=== PATIENT | female | born 2000 | race Caucasian/White ===

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

== ENCOUNTER 2020-09-08 15:24 | Emergency (ER) | payer MEDICAID, SELFPAY ==
[2020-09-08 15:29] VITALS: BP 118/84; PULSE 85; RESP 14; TEMP 36.8; O2SAT 99; BMI 35.5
--- NOTE | 2020-09-08 15:34 | ED_ITS ---
HPI - Neck Pain/Injury General: Chief Complaint: Neck Pain/Injury Stated Complaint: UNABLE TO MOVE NECK VERY WELL W/OUT PAIN Time Seen by Provider: 09/08/20 15:30 History of Present Illness: HPI Narrative: Patient is a 19-year-old female comes to the ED with neck pain. Pain occurred yesterday. 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 She states that yesterday she was lifting something and felt the pain in her neck. She says then throughout the day of the neck pain got worse and she started developing some stiffness in the neck. She is taken [id number] ibuprofen to help with pain. She says sometimes the neck pain causes some headaches as well. Denies any fever, chills, nausea/vomiting. She rates her neck pain an 8 out of 10. Patient denies any chance of being . Associated symptoms: Denies headache(s) or nausea Review of Systems Const: Denies: fever(s), chills or fatigue Eyes: Denies: change in vision or eye discomfort ENMT: Denies: throat pain, odynophagia, nasal discharge or nasal congestion Card: Denies: chest pain, palpitations, edema, swelling of feet/ankles, dyspnea on exertion or orthopnea Resp: Denies: dyspnea, productive cough or non-productive cough GI: Denies: abdominal pain, nausea, vomiting, diarrhea, constipation or hematochezia : Denies: flank pain, dysuria or hematuria Musc: Reports: neck pain; Denies: back pain or extremity swelling Skin/Breast: Denies: rash or new lesions Neuro: Denies: headache(s), numbness in extremities or weakness in extremities PFS ED PFSH: Social History Smoking and tobacco status: current every day smoker Physical Exam Const: COMMON NORMALS: no acute distress, patient oriented x3, healthy appearing and alert GENERAL APPEARANCE: cooperative and comfortable HENMT: COMMON NORMALS: normocephalic HEAD & SCALP: normocephalic MOUTH: Normal oral and palatal mucosa present THROAT: posterior oropharynx normal and uvula midline Eye: COMMON NORMALS: Equal, round and reactive pupils present PUPIL: Yes Equal, round and reactive pupils present Neck/C-Spine: COMMON NORMALS: supple and no meningeal signs GENERAL: Yes normal visual inspection CERVICAL SPINE: Yes pain with cervical ROM with anterior flexion, No Cervical spine tenderness, Yes Paracervical muscle tenderness bilateral and Yes Trapezius muscle tenderness bilateral Resp: COMMON NORMALS: normal respiratory effort, No retractions, No use of accessory muscles and clear to auscultation bilaterally AUSCULTATION: clear to auscultation bilaterally Cardio: COMMON NORMALS: regular rate, regular rhythm, S1 normal heart sound present, S2 normal heart sound present, No gallops present (Cardio), No clicks present (Cardio), No murmurs present (Cardio) and Peripheral pulses 2+ throughout RATE: regular rate RHYTHM: regular rhythm HEART SOUNDS: S1 normal heart sound present and S2 normal heart sound present PERIPHERAL PULSES: Peripheral pulses 2+ throughout GI: COMMON NORMALS: Normal to inspection, nondistended, normoactive bowel sounds present, Soft to palpation, non-tender and no masses PALPATION: Yes Soft to palpation : COMMON NORMALS: Yes no CVA tenderness BLADDER/KIDNEY EXAM: Yes no CVA tenderness Back/Pelvis: COMMON NORMALS: no CVA tenderness Extremity: COMMON NORMALS: normal to inspection Neuro: COMMON NORMALS: patient oriented x3 and moves all extremities SENSORIUM/ORIENTATION: Yes alert MENINGEAL SIGNS: Yes no meningeal signs, No nuccal rigidity and No Brudzinski's sign present Skin: GENERAL SKIN EXAM: dry skin Course Vital Signs: Vital signs: Vital Signs Temperature 98.3 F 09/08/20 15:29 Pulse Rate 85 09/08/20 15:29 Respiratory Rate 14 09/08/20 15:29 Blood Pressure 118/84 09/08/20 15:29 Pulse Oximetry 99 09/08/20 15:29 MDM - Neck Pain/Injury MDM Narrative: Medical decision making narrative: Patient is a 19-year-old female comes to the ED with neck pain. Patient works as a [employer] SUPER[employer] and says neck pain started yesterday after she lifted something. Denies any fever, chills, nausea/vomiting. Patient has some bilateral paracervical muscle tenderness and bilateral trapezius muscle tenderness. No meningeal signs and negative Brudzinski sign. Patient was given a dose of Toradol and Norflex while here in the ED. She was discharged and instructed to follow-up with PCP in 7 to 10 days for reevaluation. She is sent home with a prescription for Robaxin and ibuprofen 800. Return to ED precautions given. Patient understood agree with plan. Discharge Plan Discharge Patient Disposition: Home Clinical Impression: Strain of neck muscle Qualifiers: Encounter type: initial encounter Qualified Code(s): S16.1XXA - Strain of muscle, fascia and tendon at neck level, initial encounter Condition: Stable Prescriptions: No Action No Known Home Medications RF: 0 Discharge Orders: Discharge ED (Routine); Ordered 09/08/20 Ordered By: Dimitris Bermudez Referrals: Brent Norman MD [Primary Care Provider] - Discharge Diet: Regular Discharge Activity: Increase activity as tolerated Patient Instructions: Cervical Strain Activity Restrictions/Additional Instructions: Follow-up with medical provider as directed in 7 to 10 days for reevaluation. Stretch neck daily and massage neck muscles daily as well up with symptoms. Apply cold pack or heat on sore neck to help with symptoms as well. take medications as prescribed. Robaxin is a muscle relaxer and can cause some drowsiness so take at night before bed. Return to the ER or your medical provider if condition worsens. Please read and understand discharge instructions. If any questions, please ask. Coding Level of Care Code ED Superintendent Transportation for Rolly Fwd Exam Comprehensive
[2020-09-08] MEDS: ketorolac 60 mg/2 mL INJ IM (15:49)
[2020-09-08] MEDS: orphenadrine 30 mg/mL Inj 2 mL 60 MG IM (15:49)
[2020-09-08 16:01] VITALS: RESP 18
== END 2020-09-08 16:01 | disposition home or self-care (01) ==
PROVIDERS: Emergency Provider Physician Assistant; PCP Family Medicine
DX: S16.1XXA Strain of muscle, fascia and tendon at neck level, initial encounter (principal); F17.210 Nicotine dependence, cigarettes, uncomplicated; X50.0XXA Overexertion from strenuous movement or load, initial encounter
CPT/HCPCS: 12345; 96372; 99281; 99283; J1885; J2360

== ENCOUNTER 2021-03-10 05:11 | Emergency (ER) | payer MEDICAID, SELFPAY ==
[2021-03-10 05:17] VITALS: BP 137/86; PULSE 80; RESP 18; TEMP 37.1; O2SAT 98; BMI 38.5
--- NOTE | 2021-03-10 05:30 | ED_ITS ---
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 She states that she took a hot bath and made the pain worse. States it is worse with movement improved with rest. She rates pain a 3 out of 10 currently. Denies any dysuria denies any vomiting or diarrhea. Denies any abdominal pain. Associated symptoms: Deny abdominal pain, chills, dysuria, fever(s), nausea or vomiting Review of Systems Const: Denies: fever(s), chills, body aches or change in appetite Eyes: Denies: blurry vision or eye discomfort ENMT: Denies: throat pain or dental pain Card: Denies: chest pain Resp: Denies: dyspnea GI: Denies: abdominal pain, nausea, vomiting or diarrhea : Denies: dysuria Musc: Reports: back pain Skin/Breast: Denies: rash Neuro: Denies: headache(s) Psych: Denies: depression Gigi/Lymph: Denies: easy bruising All/Imm: Denies: urticaria PFSH ED PFSH: Social History Smoking and tobacco status: current every day smoker Physical Exam Const: COMMON NORMALS: no acute distress, patient oriented x3 and healthy appearing HENMT: COMMON NORMALS: normocephalic and atraumatic HEAD & SCALP: normocephalic and atraumatic Eye: COMMON NORMALS: Equal, round and reactive pupils present and EOMs intact bilaterally PUPIL: Yes Equal, round and reactive pupils present Neck/C-Spine: COMMON NORMALS: full ROM and supple Chest: COMMONS NORMALS: normal inspection of the chest and normal palpation of entire chest wall Resp: COMMON NORMALS: normal respiratory effort, No retractions, No use of accessory muscles and clear to auscultation bilaterally AUSCULTATION: clear to auscultation bilaterally Cardio: COMMON NORMALS: regular rate, regular rhythm and No murmurs present (Cardio) RATE: regular rate RHYTHM: regular rhythm GI: COMMON NORMALS: Normal to inspection, nondistended, normoactive bowel sounds present, Soft to palpation, non-tender and no masses PALPATION: Yes Soft to palpation Back/Pelvis: OTHER: Point tender over right lower lobe lumbar region along with some mid back tenderness no spinal tenderness Extremity: COMMON NORMALS: normal to inspection and full ROM Neuro: COMMON NORMALS: patient oriented x3, moves all extremities and no focal motor deficits Psych: COMMON NORMALS: mental status grossly normal, Normal thought process present and cooperative THOUGHT PROCESS: Normal thought process present Skin: COMMON NORMALS: no rashes or lesions noted and no wounds GENERAL SKIN EXAM: no rashes or lesions noted Course Vital Signs: Vital signs: Vital Signs Temperature 98.8 F 03/10/21 05:17 Pulse Rate 80 03/10/21 05:17 Respiratory Rate 18 03/10/21 05:17 Blood Pressure 137/86 03/10/21 05:17 Pulse Oximetry 98 03/10/21 05:17 MDM - Back Pain/Injury MDM Narrative: Medical decision making narrative: Patient presents here with a low back strain likely from lifting. She is well-appearing here is tender on exam consistent with a lumbar strain. Patient has no midline tenderness with no signs of epidural abscess. He is stable for discharge and is to follow-up with PCP. She is to ice the area and no heavy lifting. Discharge Plan Discharge Patient Disposition: Home Clinical Impression: Strain of lumbar region Qualifiers: Encounter type: initial encounter Qualified Code(s): S39.012A - Strain of muscle, fascia and tendon of lower back, initial encounter Condition: Stable Prescriptions: New methocarbamol 750 mg tablet 750 mg PO Q6H PRN (Reason: spasms) Qty: 20 RF: 0 Naprosyn 500 mg tablet 500 mg PO BID PRN (Reason: pain) Qty: 20 RF: 0 No Action amoxicillin-pot clavulanate 875-125 mg tablet 1 tab PO BID 10 Days Qty: 20 RF: 0 prednisone 20 mg tablet 20 mg PO DAILY 5 Days Qty: 5 RF: 0 Discharge Orders: Discharge ED (Routine); Ordered 03/10/21 Ordered By: Bigg Manzo Referrals: Prasanna Justin MD [Primary Care Provider] - 1-3 days Discharge Diet: Advance as tolerated Discharge Activity: Resume usual activity Patient Instructions: Low Back Strain (ED), Opioid Safety Stand Alone Forms: Work/School Release Coding Level of Care Code ED Journeyman Mechanic for Chg Fwd Exam Comprehensive
[2021-03-10] MEDS: ketorolac 60 mg/2 mL INJ IM (05:43)
[2021-03-10] MEDS: ondansetron 4 MG Tablet PO (05:51)
[2021-03-10 05:54] VITALS: BP 153/94; PULSE 73; RESP 18; O2SAT 99
== END 2021-03-10 05:56 | disposition home or self-care (01) ==
PROVIDERS: Emergency Provider Emergency Medicine; PCP Family Medicine
DX: S39.012A Strain of muscle, fascia and tendon of lower back, initial encounter (principal); F17.210 Nicotine dependence, cigarettes, uncomplicated; X50.9XXA Other and unspecified overexertion or strenuous movements or postures, initial encounter; Y93.F2 Activity, caregiving, lifting; Y99.0 Civilian activity done for income or pay
CPT/HCPCS: 96372; 99283; J1885; Q0162

== ENCOUNTER 2023-01-30 00:55 | Emergency (ER) | payer BC, MEDICAID, SELFPAY ==
[2023-01-30 01:01] VITALS: BP 151/77; PULSE 87; RESP 18; TEMP 37.3; O2SAT 99; BMI 43.2
--- NOTE | 2023-01-30 01:14 | ED_ITS ---
HPI - URI/Sore Throat General: Chief Complaint: Upper Respiratory Infection Stated Complaint: thoat pain Time Seen by Provider: 01/30/23 01:00 History of Present Illness: Patient is a 22-year-old female comes to the ED with sore throat and UTI symptoms. Patient says her sore throat has been going on now for little over a month and a half. She was diagnosed with strep throat a month and a half ago and was put on a prescription for amoxicillin. Patient says she finished her course of amoxicillin and did not get much improvement with her sore throat and she has just been dealing with it. Over the past couple days the sore throat pain is gotten worse and its on the right side of her throat and radiates into her right ear. She endorses some right ear pain as well. Denies any fevers, chills, nasal drainage or congestion, cough, abdominal pain, nausea/vomiting or bowel symptoms. Patient does endorse having some burning with urination and some white vaginal discharge. Her urinary symptoms started approximately 2 days ago. Associated symptoms: Reports ear or mastoid pain (Right ear pain); Deny abdominal pain, chills, chest pain, diarrhea, fever(s), headache(s), nasal congestion, nausea or vomiting Review of Systems Const: Denies: fever(s), chills or fatigue Eyes: Denies: change in vision or eye discomfort ENMT: Reports: throat pain and ear or mastoid pain (Right ear pain); Denies: odynophagia, nasal discharge or nasal congestion Card: Denies: chest pain, palpitations, edema, swelling of feet/ankles, dyspnea on exertion or orthopnea Resp: Denies: dyspnea, productive cough or non-productive cough GI: Denies: abdominal pain, nausea, vomiting, diarrhea, constipation or hematochezia : Reports: dysuria and vaginal discharge (White discharge); Denies: flank pain or hematuria Musc: Denies: neck pain, back pain or extremity swelling Skin/Breast: Denies: rash or new lesions Neuro: Denies: headache(s), numbness in extremities or weakness in extremities [facility] ED PFSH: Medical History (Updated 01/30/23 @ 01:44 by ELOY Gonzalez) No pertinent family history Surgical History (Updated 01/30/23 @ 01:19 by ELOY Gonzalez) No pertinent past surgical history Social History Smoking and tobacco status: current every day smoker Physical Exam Const: COMMON NORMALS: no acute distress, patient oriented x3, healthy appearing and alert HENMT: COMMON NORMALS: normocephalic, EAC's normal and TM's normal bilaterally HEAD & SCALP: normocephalic EXTERNAL AUDITORY CANAL: EAC's normal TYMPANIC MEMBRANE: TM's normal bilaterally MOUTH: Normal oral and palatal mucosa present THROAT: uvula midline, abnormal tonsil bilateral hypertrophy 2+ and posterior oropharynx abnormal erythema Neck/C-Spine: COMMON NORMALS: supple GENERAL: Yes normal visual inspection Resp: COMMON NORMALS: normal respiratory effort, No retractions, No use of accessory muscles and clear to auscultation bilaterally AUSCULTATION: clear to auscultation bilaterally Cardio: COMMON NORMALS: regular rate, regular rhythm, S1 normal heart sound present, S2 normal heart sound present, No gallops present (Cardio), No clicks present (Cardio), No murmurs present (Cardio) and Peripheral pulses 2+ throughout RATE: regular rate RHYTHM: regular rhythm HEART SOUNDS: S1 normal heart sound present and S2 normal heart sound present PERIPHERAL PULSES: Peripheral pulses 2+ throughout GI: COMMON NORMALS: Normal to inspection, nondistended, normoactive bowel sounds present, Soft to palpation, non-tender and no masses PALPATION: Yes Soft to palpation : COMMON NORMALS: Yes no CVA tenderness BLADDER/KIDNEY EXAM: Yes no CVA tenderness Back/Pelvis: COMMON NORMALS: no CVA tenderness Extremity: COMMON NORMALS: normal to inspection Neuro: COMMON NORMALS: patient oriented x3 SENSORIUM/ORIENTATION: Yes alert GAIT: Yes Normal gait present Skin: GENERAL SKIN EXAM: dry skin Course Vital Signs: Vital signs: Vital Signs Temperature 99.1 F 01/30/23 01:01 Pulse Rate 87 01/30/23 01:01 Respiratory Rate 18 01/30/23 01:01 Blood Pressure 151/77 01/30/23 01:01 Pulse Oximetry 99 01/30/23 01:01 [facility] - URI/Sore Throat Medical Decision Making Patient is a 22-year-old female comes to the ED with sore throat and UTI symptoms. Patient says her sore throat has been going on now for little over a month and a half. She was diagnosed with strep throat a month and a half ago and was put on a prescription for amoxicillin. Patient says she finished her course of amoxicillin and did not get much improvement with her sore throat and she has just been dealing with it. Over the past couple days the sore throat pain is gotten worse and its on the right side of her throat and radiates into her right ear. She endorses some right ear pain as well. Denies any fevers, chills, nasal drainage or congestion, cough, abdominal pain, nausea/vomiting or bowel symptoms. Patient does endorse having some burning with urination and some white vaginal discharge. Her urinary symptoms started approximately 2 days ago. Vitals are stable. Patient appears nontoxic in no acute distress or pain. TMs are normal bilaterally. She has tonsil hypertrophy that is 2+ bilaterally and posterior oropharynx erythema. Rest of exam is benign. hCG urine was negative, UA showed no signs of a UTI. Strep was negative. Patient was given a dose of Rocephin here in the ED and diagnosed with pharyngitis and vaginal yeast infection. She was sent home with a prescription for an antibiotic and antifungal. Told to follow-up with her PCP in the next week for reevaluation. Return to ED precautions given. Patient understood and agreed with plan. Lab Data I reviewed the patient's lab results. Laboratory Results HCG, Qual Negative (Negative) 01/30/23 01:20 Urine Color Colorless (Yellow) 01/30/23 01:20 Urine Appearance Clear (CLEAR) 01/30/23 01:20 Urine pH 6 (5-7) 01/30/23 01:20 Ur Specific [place] 1.015 (1.005-1.030) 01/30/23 01:20 Urine Protein Neg (Negative) 01/30/23 01:20 Urine Glucose (UA) Norm (Normal) 01/30/23 01:20 Urine Ketones Negative (Negative) 01/30/23 01:20 Urine Blood Neg (Negative) 01/30/23 01:20 Urine Nitrate Negative (Negative) 01/30/23 01:20 Urine Bilirubin Neg (Negative) 01/30/23 01:20 Urine Urobilinogen Neg mg/dL (Negative) 01/30/23 01:20 Ur Leukocyte Esterase Negative (Negative) 01/30/23 01:20 Group A Strep Rapid Negative (Negative) 01/30/23 01:22 Discharge Plan Discharge Patient Disposition: Home Clinical Impression: Pharyngitis, Vaginal yeast infection Condition: Stable Prescriptions: New fluconazole 150 mg tablet 150 mg PO Q3D Qty: 2 0RF Rx Instructions: may repeat second dose 72 hrs after first dose if symptoms persist clindamycin HCl 300 mg capsule 300 mg PO Q8H 10 Days Qty: 30 0RF No Action fluconazole [Diflucan] 150 mg tablet 150 mg PO Q3D Qty: 2 1RF Naprosyn 500 mg tablet 500 mg PO BID PRN (Reason: pain) Qty: 20 0RF Discharge Orders: Discharge ED (Routine); Ordered 01/30/23 Ordered By: Dimitris Bermudez Referrals: Prasanna Justin MD [Primary Care Provider] - Discharge Diet: Regular Discharge Activity: Increase activity as tolerated Patient Instructions: Pharyngitis (ED), Yeast Infection Activity Restrictions/Additional Instructions: Follow-up with medical provider as directed in the next 7 to 10 days for reevaluation. Take medications as prescribed. Return to the ER or your medical provider if condition worsens. Please read and understand discharge instructions. Thank you for choosing [facility] for your healthcare needs today. Please realize this is an emergency room and that we are providing you with a medical screening exam and this may not be complete and all inclusive of all the testing and or work up that you may need to determine your ailment or severity of your illness. It is very important that you follow up as instructed or that you return to the Emergency Department should you have concerns or if your condition changes or worsens in any way. Coding Level of Care Code ED [place] Operator for Rolly Calixto
[2023-01-30] MEDS: cefTRIAXone 1,000 MG in water for injection-sterile 2.1 ML 2.1 MG IM (01:26)
[2023-01-30 01:27] LABS: HCG Qualitative Urine. Negative (Negative)
[2023-01-30 01:33] LABS: Rapid Strep A Test Negative (Negative)
[2023-01-30 01:35] LABS: Add Urine Microscopic? NO; Charge for UA Resulting for Rev
[2023-01-30 01:36] LABS: Bilirubin Urine Neg (Negative); Blood Urine Neg (Negative); Glucose Urine UA Norm (Normal); Ketones Urine Negative (Negative); Leukocyte Esterase Urine Negative (Negative); Nitrate Urine Negative (Negative); Protein Urine Neg (Negative); Specific Gravity, Urine 1.015 (1.005-1.030); Urine Appearance Clear (CLEAR); Urine Color Colorless (Yellow); Urobilinogen Urine Neg (Negative); pH Urine 6 (5-7)
[2023-01-30 01:53] VITALS: BP 156/96; PULSE 84; RESP 16; O2SAT 96
[2023-01-30 01:54] VITALS: BP 156/96; PULSE 84; RESP 16; TEMP 37.3; O2SAT 96
== END 2023-01-30 01:55 | disposition home or self-care (01) ==
PROVIDERS: Emergency Provider Physician Assistant; PCP Family Medicine
DX: J02.9 Acute pharyngitis, unspecified (principal); B37.9 Candidiasis, unspecified; F17.210 Nicotine dependence, cigarettes, uncomplicated
CPT/HCPCS: 81003; 81025; 87081; 87880; 96372; 99284; J0696

== ENCOUNTER 2023-02-06 22:11 | Emergency (ER) | payer BC, MEDICAID, SELFPAY ==
[2023-02-06 22:17] VITALS: BP 120/80; PULSE 91; RESP 16; TEMP 37; O2SAT 98; BMI 41.2
--- NOTE | 2023-02-06 23:27 | ED_ITS ---
HPI - Skin/Abscess/Foreign Bdy General: Chief complaint: Skin/Abscess/Foreign Body Stated complaint: Rash Time Seen by Provider: 02/06/23 23:10 History of Present Illness: 22-year-old female has just completed antibiotics and has been outside significantly and recently developed a rash to the face. Patient has a confluent maculopapular rash to the face with white pustules. Patient appears nontoxic. Patient appears in no acute distress. Review of Systems General: Reports: 10 or more systems reviewed and unremarkable except in HPI and below Skin/Breast: Reports: rash PFSH ED PFSH: Medical History (Updated 02/07/23 @ 00:04 by NICHO Teran) No pertinent family history Surgical History (Updated 01/30/23 @ 01:19 by ELOY Gonzalez) No pertinent past surgical history Social History Smoking and tobacco status: current every day smoker Physical Exam Const: COMMON NORMALS: alert HENMT: COMMON NORMALS: normocephalic HEAD & SCALP: normocephalic Neck/C-Spine: COMMON NORMALS: full ROM Resp: COMMON NORMALS: normal respiratory effort and clear to auscultation bilaterally AUSCULTATION: clear to auscultation bilaterally Cardio: COMMON NORMALS: regular rate RATE: regular rate Back/Pelvis: COMMON NORMALS: thoracic and lumbar spine normal to inspection Extremity: COMMON NORMALS: normal to inspection Neuro: SENSORIUM/ORIENTATION: Yes alert Skin: RASHES: other (Acneform eruption to face) Course Vital Signs: Vital signs: Vital Signs Temperature 98.6 F 02/06/23 22:17 Pulse Rate 91 02/06/23 22:17 Respiratory Rate 16 02/06/23 22:17 Blood Pressure 120/80 02/06/23 22:17 Pulse Oximetry 98 02/06/23 22:17 Oxygen Delivery Me thod Room Air 02/06/23 22:17 MDM - Skin/Abscess/Foreign Bdy Medicial Decision Making Patient comes in for rash to the face. On exam patient has a maculopapular rash with pustules to the face. Patient recently got off clindamycin and had an injection of ceftriaxone. Differential diagnosis includes but not limited to photodermatitis, drug eruptions, acneform dermatitis. I believe patient has acneform dermatitis secondary antibiotic. Recommended avoidance of sunlight. Patient be placed on some indomethacin and ketoconazole for treatment. Encourage fluids rest and follow-up. Patient was given some triamcinolone cream and instructed to use only once a day for the next 3 days to help with redness and inflammation. But was instructed not to use it was no longer. Patient reported understanding of care plan and need for follow-up or return. Discharge Plan Discharge Patient Disposition: Home Clinical Impression: Adverse reaction to drug Qualifiers: Encounter type: initial encounter Qualified Code(s): T50.905A - Adverse effect of unspecified drugs, medicaments and biological substances, initial encounter Condition: Stable Prescriptions: New ketoconazole 2 % cream 1 applic topical DAILY Qty: 30 0RF indomethacin 25 mg capsule 25 mg PO TID Qty: 21 0RF Rx Instructions: administer with food or milk No Action fluconazole [Diflucan] 150 mg tablet 150 mg PO Q3D Qty: 2 1RF Naprosyn 500 mg tablet 500 mg PO BID PRN (Reason: pain) Qty: 20 0RF fluconazole 150 mg tablet 150 mg PO Q3D Qty: 2 0RF Rx Instructions: may repeat second dose 72 hrs after first dose if symptoms persist clindamycin HCl 300 mg capsule 300 mg PO Q8H 10 Days Qty: 30 0RF Discharge Orders: Discharge ED (Routine); Ordered 02/07/23 Ordered By: Modesto Chapman Referrals: Prasanna Justin MD [Primary Care Provider] - Discharge Diet: Usual diet Discharge Activity: Increase activity as tolerated Patient Instructions: Dermatitis (ED) Activity Restrictions/Additional Instructions: Use ketoconazole cream once a day to the face for the next 2 weeks. Take indomethacin 25 mg 3 times a day for the next 7 days. Do not use ibuprofen or naproxen with indomethacin. Drink plenty of water with medication. Follow-up with primary care in 1 week for recheck. Stop any oral antibiotics. Avoid extreme heat and direct sunlight until rash clears. Coding Level of Care Code ED Animal Cytologist for Rolly Calixto
[2023-02-07] MEDS: ketorolac 10 mg Tablet PO (00:27)
== END 2023-02-07 00:33 | disposition home or self-care (01) ==
PROVIDERS: Emergency Provider Nurse Practitioner Family; PCP Family Medicine
DX: T88.7XXA Unspecified adverse effect of drug or medicament, initial encounter (principal); T36.95XA Adverse effect of unspecified systemic antibiotic, initial encounter; F17.210 Nicotine dependence, cigarettes, uncomplicated
CPT/HCPCS: 99283

== ENCOUNTER → 2023-08-18 15:36 | Outpatient (BNVA) | payer BC, MEDICAID, SELFPAY | PROVIDERS: PCP Family Medicine; Visit Provider Nurse Practitioner | DX: R09.81 Nasal congestion (principal) | CPT/HCPCS: 87400 ==

== ENCOUNTER 2023-12-06 01:01 | Emergency (ER) | payer MEDICAID, SELFPAY ==
[2023-12-06 01:12] VITALS: BP 127/70; PULSE 80; RESP 16; TEMP 36.6; O2SAT 99; BMI 45.8
[2023-12-06 02:47] VITALS: BP 136/96; PULSE 77; RESP 16; O2SAT 96
[2023-12-06 03:25] LABS: Basophils # 0.1 10^3/uL (0.0-0.1); Basophils % 0.8 %; Eosinophils # 0.2 10^3/uL (0.0-0.8); Eosinophils % 1.9 %; Hematocrit 39.3 % (36-47); Lymphocytes # 2.9 10^3/uL (0.8-4.8); Lymphocytes % 32.9 %; Mean Corpuscular HGB Conc 33.6 g/dL (30-55); Mean Corpuscular Hemoglobin 30.3 pg (27-33); Mean Corpuscular Volume 90.1 fl (85-98); Mean Platelet Volume 10.8 fL (7.4-10.4); Monocytes # 0.6 10^3/uL (0.2-0.9); Monocytes % 6.7 %; Neutrophils # 5.05 10^3/uL (1.8-7.7); Neutrophils % 57.5 %; Nucleated Red Blood Cells % 0 %; Platelet Count 221 10^3/cmm (157-399); Red Blood Count 4.36 10^6/uL (3.85-5.65); White Blood Count 8.79 10^3/uL (3.29-11.43)
[2023-12-06 03:29] LABS: HCG, Serum Qual Negative (Negative)
[2023-12-06 03:35] LABS: Alanine Aminotransferase 17 U/L (0-33); Albumin Level 4.6 g/dL (3.5-5.2); Alkaline Phosphatase 93 U/L (35-105); Aspartate Amino Transferase 11 U/L (0-32); Blood Urea Nitrogen 9 mg/dL (6-20); C Reactive Protein 5.9 mg/L (0.0-4.9); Calcium 9.7 mg/dL (8.5-10.5); Carbon Dioxide 23 mmol/L (22-29); Chloride 101 mmol/L (98-107); Creatinine Clr Calc Pharmacy 138.0019; Globulin 3.3 g/dL (1.3-4.6); Glomerular Filtration Rate 103.7 mL/min (90-130); Glucose 98 mg/dL (65-115); Lipase 20 U/L (13-60); Osmolality Calculated 281 mOsm/kg (285-295); Sodium 136 mmol/L (136-145); Total Bilirubin 0.3 mg/dL (0.15-1.2); Total Protein 7.9 g/dL (6.6-8.7)
[2023-12-06 03:47] VITALS: BP 135/68; PULSE 89; RESP 4; O2SAT 100
[2023-12-06 03:56] LABS: Add Urine Microscopic? NO; Charge for UA Resulting for Rev
[2023-12-06 04:01] LABS: Bilirubin Urine Neg (Negative); Blood Urine Neg (Negative); Glucose Urine UA Norm (Normal); Ketones Urine Negative (Negative); Leukocyte Esterase Urine Negative (Negative); Nitrate Urine Negative (Negative); Protein Urine Neg (Negative); Urine Appearance Clear (CLEAR); Urine Color Light yellow (Yellow); Urobilinogen Urine Neg (Negative); pH Urine 6 (5-7)
--- NOTE | 2023-12-06 04:02 | XRR_ITS ---
PROCEDURE INFORMATION: Exam: XR Abdomen Exam date and time: 12/06/2023 4:13 AM Age: 23 years old Clinical indication: Abdominal pain; Localized; Left lower quadrant (llq); Prior surgery; Surgery date: 6+ months; Surgery type: Csection x2; Patient HX: C/O llq pain TECHNIQUE: Imaging protocol: Radiologic exam of the abdomen. Views: Frontal supine view of the abdomen. 1 View. COMPARISON: CR XR chest 1V [id number] 12/12/2017 7:45 AM FINDINGS: Gastrointestinal tract: Nonspecific bowel gas pattern. No bowel dilation. Bones/joints: Unremarkable. XR/XR KUB portable [id number] IMPRESSION: No acute findings.
--- NOTE | 2023-12-06 04:33 | W.ED.ABDPA2 ---
HPI - Abdominal Pain General: Chief Complaint: Abdominal Pain Stated Complaint: Lower abd pain, Back pain Time Seen by Provider: 12/06/23 03:18 History of Present Illness: 23-year-old female with left-sided abdominal pain radiating into her back. Is been present for a about a week, worsened tonight. She had an increase in volume of stool in the last 24 hours as well. She denies fever. She is nauseated but has not vomited. She has had 2 C-sections. Associated Symptoms: Denies chills, diarrhea, fever(s), hematochezia and vomiting Review of Systems Const: Denies: fever(s), chills or body aches Eyes: Denies: change in vision Card: Denies: chest pain or palpitations Resp: Denies: dyspnea, productive cough, non-productive cough or wheezing GI: Denies: vomiting, diarrhea or hematochezia : Denies: difficulty voiding Skin/Breast: Denies: rash Neuro: Denies: headache(s), weakness in extremities, dizziness or confusion [facility] ED PFSH: Medical History Psychiatric care No pertinent family history Surgical History No pertinent past surgical history Social History Smoking and tobacco/nicotine status: current every day tobacco/nicotine user Physical Exam Const: COMMON NORMALS: no acute distress GENERAL APPEARANCE: cooperative; not ill appearing and not frail appearing HENMT: COMMON NORMALS: normocephalic, atraumatic and Normal external nose present HEAD & SCALP: normocephalic and atraumatic FACE & SINUS: normal facial exam and face symmetric NOSE: Normal external nose present Eye: COMMON NORMALS: Equal, round and reactive pupils present and EOMs intact bilaterally PUPIL: Yes Equal, round and reactive pupils present Neck/C-Spine: GENERAL: Yes trachea midline Chest: CHEST: Yes Symmetrical chest wall rise Resp: COMMON NORMALS: normal respiratory effort, No retractions, No use of accessory muscles and clear to auscultation bilaterally AUSCULTATION: clear to auscultation bilaterally Cardio: COMMON NORMALS: regular rate and regular rhythm RATE: regular rate RHYTHM: regular rhythm GI: COMMON NORMALS: Normal to inspection, nondistended, normoactive bowel sounds present and Soft to palpation PALPATION: Yes Soft to palpation, Yes Tenderness to palpation present (GI) Details: LLQ and No Guarding due to palpation present (GI) : COMMON NORMALS: Yes no CVA tenderness BLADDER/KIDNEY EXAM: Yes no CVA tenderness Back/Pelvis: COMMON NORMALS: no CVA tenderness Extremity: COMMON NORMALS: no pedal edema Neuro: RELL COMA SCALE: document GCS findings Rell coma scale eye opening: Spontaneous Rell coma scale verbal response: Orientated Rell coma scale motor response: Obey commands Rell coma scale total score: 15 SENSORY EXAM: Yes extremities (intact) Psych: COMMON NORMALS: speech normal SPEECH: Yes normal speech Skin: COMMON NORMALS: no rashes or lesions noted GENERAL SKIN EXAM: no rashes or lesions noted Course Vital Signs: Vital signs: Vital Signs Temperature 98 F 12/06/23 01:12 Pulse Rate 79 12/06/23 05:12 Respiratory Rate 14 12/06/23 05:12 Blood Pressure 127/69 12/06/23 05:12 Pulse Oximetry 100 12/06/23 05:12 Oxygen Delivery Me thod Room Air 12/06/23 03:47 MDM - Abdominal Pain Medical Decision Making Vitals are stable. She is afebrile. White blood cell count is 9. No shift. CRP is only 6. Urinalysis is negative with no evidence of blood. KUB is nonacute although there is an increased volume of stool. Lab Data 12/06/23 03:07 12/06/23 03:07 Labs/Radiology: Radiology Impressions KUB X-Ray 12/06/23 04:02 IMPRESSION: No acute findings. Laboratory Results WBC 8.79 10^3/uL (3.29-11.43) 12/06/23 03:07 RBC 4.36 10^6/uL (3.85-5.65) 12/06/23 03:07 Hgb 13.20 g/dL (11.27-16.99) 12/06/23 03:07 Hct 39.3 % (36-47) 12/06/23 03:07 MCV 90.1 fl (85-98) 12/06/23 03:07 MCH 30.3 pg (27-33) 12/06/23 03:07 MCHC 33.6 g/dL (30-55) 12/06/23 03:07 RDW 12.0 % (12.1-15.1) L 12/06/23 03:07 Plt Count 221 10^3/cmm (157-399) 12/06/23 03:07 MPV 10.8 fL (7.4-10.4) H 12/06/23 03:07 Neut % (Auto) 57.5 % 12/06/23 03:07 Lymph % (Auto) 32.9 % 12/06/23 03:07 [place] % (Auto) 6.7 % 12/06/23 03:07 Eos % (Auto) 1.9 % 12/06/23 03:07 Baso % (Auto) 0.8 % 12/06/23 03:07 Neut # (Auto) 5.05 10^3/uL (1.8-7.7) 12/06/23 03:07 Lymph # (Auto) 2.9 10^3/uL (0.8-4.8) 12/06/23 03:07 [place] # (Auto) 0.6 10^3/uL (0.2-0.9) 12/06/23 03:07 Eos # (Auto) 0.2 10^3/uL (0.0-0.8) 12/06/23 03:07 Baso # (Auto) 0.1 10^3/uL (0.0-0.1) 12/06/23 03:07 Nucleated RBC % (auto) 0 % 12/06/23 03:07 Nucleated RBCs # 0.0 /100WBC 12/06/23 03:07 Sodium 136 mmol/L (136-145) 12/06/23 03:07 Potassium 4.0 mmol/L (3.5-5.1) 12/06/23 03:07 Chloride 101 mmol/L (98-107) 12/06/23 03:07 Carbon Dioxide 23 mmol/L (22-29) 12/06/23 03:07 Anion Gap 16.0 (5-19) 12/06/23 03:07 BUN 9 mg/dL (6-20) 12/06/23 03:07 Creatinine 0.7 mg/dL (0.5-0.9) 12/06/23 03:07 GFR Calculation 103.7 mL/min (90-130) 12/06/23 03:07 Glucose 98 mg/dL (65-115) 12/06/23 03:07 Calculated Osmolality 281 mOsm/kg (285-295) L 12/06/23 03:07 Calcium 9.7 mg/dL (8.5-10.5) 12/06/23 03:07 Total Bilirubin 0.3 mg/dL (0.15-1.2) 12/06/23 03:07 AST 11 U/L (0-32) 12/06/23 03:07 ALT 17 U/L (0-33) 12/06/23 03:07 Alkaline Phosphatase 93 U/L (35-105) 12/06/23 03:07 C-Reactive Protein 5.9 mg/L (0.0-4.9) H 12/06/23 03:07 Total Protein 7.9 g/dL (6.6-8.7) 12/06/23 03:07 Albumin 4.6 g/dL (3.5-5.2) 12/06/23 03:07 Globulin 3.3 g/dL (1.3-4.6) 12/06/23 03:07 Lipase 20 U/L (13-60) 12/06/23 03:07 HCG, Qual Negative (Negative) 12/06/23 03:07 Urine Color Light yellow (Yellow) 12/06/23 03:13 Urine Appearance Clear (CLEAR) 12/06/23 03:13 Urine pH 6 (5-7) 12/06/23 03:13 Ur Specific [place] 1.020 (1.005-1.030) 12/06/23 03:13 Urine Protein Neg (Negative) 12/06/23 03:13 Urine Glucose (UA) Norm (Normal) 12/06/23 03:13 Urine Ketones Negative (Negative) 12/06/23 03:13 Urine Blood Neg (Negative) 12/06/23 03:13 Urine Nitrate Negative (Negative) 12/06/23 03:13 Urine Bilirubin Neg (Negative) 12/06/23 03:13 Urine Urobilinogen Neg mg/dL (Negative) 12/06/23 03:13 Ur Leukocyte Esterase Negative (Negative) 12/06/23 03:13 All radiology interpretation(s) finalized by discharge Discharge Plan Discharge Patient Disposition: Home Clinical Impression: Abdominal pain, Constipation Condition: Stable Prescriptions: New magnesium citrate Solution 296 ml PO DAILY Qty: 296 0RF No Action fluoxetine [Prozac] 20 mg capsule 20 mg PO DAILY Qty: 90 0RF trazodone 50 mg tablet 100 mg PO .HS PRN (Reason: insomnia) Qty: 60 2RF levocetirizine [Xyzal] 5 mg tablet 5 mg PO DAILY rizatriptan 10 mg tablet See Rx Instructions PO .COMPLEX Rx Instructions: take 1 tab at onset of headache; if no relief may repeat 1 tab after at least 2 hrs; max = 3 tabs/24 hr PO Discharge Orders: Discharge ED (Routine); Ordered 12/06/23 Ordered By: Ezequiel Moreland Referrals: Prasanna Justin MD [Primary Care Provider] - 1-3 days Patient Instructions: Constipation (ED), Abdominal Pain (ED), Opioid Safety, Pain Management Activity Restrictions/Additional Instructions: Your laboratory workup and imaging shows that you have an increased amount of stool. The increase in output you have experienced is likely because of this. Evacuation needs to continue. Medication will help with this. Use it today. Return for fever greater than 100, vomiting liquids or medications, any other concerning symptoms. See your doctor this week. Coding Level of Care Code ED Branch Operations Specialist for Rolly Calixto
[2023-12-06 05:12] VITALS: BP 127/69; PULSE 79; RESP 14; O2SAT 100
== END 2023-12-06 05:13 | disposition home or self-care (01) ==
PROVIDERS: Emergency Provider Emergency Medicine; PCP Family Medicine
DX: K59.00 Constipation, unspecified (principal); R10.32 Left lower quadrant pain; Z72.0 Tobacco use
CPT/HCPCS: 74018; 80053; 81003; 83690; 84703; 85025; 86140; 99284

== ENCOUNTER 2024-01-10 19:18 | Emergency (ER) | payer MEDICAID, SELFPAY ==
--- NOTE | 2024-01-10 19:20 | XRR_ITS ---
PROCEDURE INFORMATION: Exam: XR Chest Exam date and time: 01/10/2024 7:47 PM Age: 23 years old Clinical indication: Patient HX: Cough; SOB; Lung rattling TECHNIQUE: Imaging protocol: Radiologic exam of the chest. Views: 2 views. COMPARISON: CR XR chest 1V [id number] 12/12/2017 7:45 AM FINDINGS: Lungs: Unremarkable. No consolidation. Pleural spaces: Unremarkable. No pleural effusion. No pneumothorax. Heart/Mediastinum: Unremarkable. No cardiomegaly. Bones/joints: Unremarkable. XR/XR chest 2V* [id number] IMPRESSION: No acute findings.
[2024-01-10 19:27] VITALS: BP 131/90; PULSE 94; RESP 17; TEMP 36.6; O2SAT 99; BMI 47.2
--- NOTE | 2024-01-10 19:57 | ED_ITS ---
HPI - SOB/Dyspnea General: Chief Complaint: Shortness of Breath/Dyspnea Stated Complaint: Cough\Sob\Lung Rattling Time Seen by Provider: 01/10/24 19:56 History of Present Illness: HPI Narrative: 23-year-old female comes in today with c ough and congestion since . Patient reports that she has actually been ill since before that but since she has felt the rattling in her her chest. Patient appears nontoxic. Patient speaks in full sentences. Patient denies any chronic medical problems. Review of Systems General: Reports: 10 or more systems reviewed and unremarkable except in HPI and below PFSH ED PFSH: Medical History Psychiatric care No pertinent family history Surgical History No pertinent past surgical history Social History Smoking and tobacco/nicotine status: current every day tobacco/nicotine user Physical Exam Const: COMMON NORMALS: alert HENMT: COMMON NORMALS: normocephalic HEAD & SCALP: normocephalic Neck/C-Spine: COMMON NORMALS: full ROM Resp: COMMON NORMALS: normal respiratory effort AUSCULTATION: wheezes Cardio: COMMON NORMALS: regular rate RATE: regular rate GI: COMMON NORMALS: Soft to palpation PALPATION: Yes Soft to palpation Back/Pelvis: COMMON NORMALS: thoracic and lumbar spine normal to inspection Extremity: COMMON NORMALS: full ROM Neuro: SENSORIUM/ORIENTATION: Yes alert Skin: COMMON NORMALS: turgor normal GENERAL SKIN EXAM: turgor normal Course Vital Signs: Vital signs: Vital Signs Temperature 98 F 01/10/24 19:27 Pulse Rate 94 01/10/24 19:27 Respiratory Rate 17 01/10/24 19:27 Blood Pressure 131/90 01/10/24 19:27 Pulse Oximetry 99 01/10/24 19:27 Oxygen Delivery Me thod Room Air 01/10/24 19:27 MDM - SOB/Dyspnea Medical Decision Making 23-year-old female comes in today with cough and congestion. On exam patient has some mild wheezing expiratory. Skin is warm dry. Vital signs are normal. Differential diagnosis pneumonia, asthma, bronchitis. Chest x-ray noted no pneumonia. Patient reports no history. Believe patient probably has some mild bronchitis. Will treat with dexamethasone 10 mg x 1 and azithromycin. Patient reports understanding agreed to plan. All radiology interpretation(s) finalized by discharge Discharge Plan Discharge Patient Disposition: Home Clinical Impression: Bronchitis Condition: Stable Prescriptions: New azithromycin 250 mg tablet 250 mg PO DAILY 4 Days Qty: 4 0RF No Action fluoxetine [Prozac] 20 mg capsule 20 mg PO DAILY Qty: 90 0RF trazodone 50 mg tablet 100 mg PO .HS PRN (Reason: insomnia) Qty: 60 2RF levocetirizine [Xyzal] 5 mg tablet 5 mg PO DAILY rizatriptan 10 mg tablet See Rx Instructions PO .COMPLEX Rx Instructions: take 1 tab at onset of headache; if no relief may repeat 1 tab after at least 2 hrs; max = 3 tabs/24 hr PO fluconazole 150 mg tablet 150 mg PO DAILY 3 Days Qty: 3 0RF magnesium citrate Solution 296 ml PO DAILY Qty: 296 0RF Discharge Orders: Discharge ED (Routine); Ordered 01/10/24 Ordered By: Modesto Chapman Referrals: Georgia Norman PA [Primary Care Provider] - Discharge Diet: Usual diet Discharge Activity: Increase activity as tolerated Patient Instructions: Bronchitis (Acute) - Adult Activity Restrictions/Additional Instructions: Drink plenty of water and fluids. Do not smoke. Follow-up with primary care for further instructions. Return to ED for new concerns. 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
[2024-01-10 20:00] VITALS: RESP 16
[2024-01-10] MEDS: dexamethasone 10 mg/mL INJ IM (20:12)
[2024-01-10] MEDS: azithromycin 250 mg Tablet 500 MG PO (20:12)
[2024-01-10 20:30] VITALS: PULSE 87; RESP 16
== END 2024-01-10 20:31 | disposition home or self-care (01) ==
PROVIDERS: Emergency Provider Nurse Practitioner Family; PCP Physician Assistant
DX: J40 Bronchitis, not specified as acute or chronic (principal); Z72.0 Tobacco use
CPT/HCPCS: 71046; 96372; 99284; J1100; Q0144

== ENCOUNTER → 2024-04-01 08:37 | Outpatient (BNVA) | payer MEDICAID, SELFPAY | PROVIDERS: PCP Physician Assistant; Visit Provider Nurse Practitioner Family | DX: L30.9 Dermatitis, unspecified (principal); D22.4 Melanocytic nevi of scalp and neck; L81.4 Other melanin hyperpigmentation | CPT/HCPCS: 11104; 99203 ==

== ENCOUNTER → 2024-04-11 09:46 | Outpatient (BNVA) | payer MEDICAID, SELFPAY | PROVIDERS: PCP Physician Assistant; Visit Provider Nurse Practitioner Family | DX: L02.223 Furuncle of chest wall (principal); Z48.02 Encounter for removal of sutures | CPT/HCPCS: 99213 ==

== ENCOUNTER → 2024-04-17 13:37 | Outpatient (BNVA) | payer MEDICAID, SELFPAY | PROVIDERS: PCP Physician Assistant; Visit Provider Registered Nurse Neonatal Intensive Care | DX: Z20.822 Contact with and (suspected) exposure to COVID-19 (principal) | CPT/HCPCS: 87426 ==

== ENCOUNTER 2024-09-19 00:33 | Emergency (ER) | payer MEDICAID, SELFPAY ==
[2024-09-19 00:34] VITALS: BP 173/99; PULSE 98; RESP 18; TEMP 36.9; O2SAT 98; BMI 50.5
[2024-09-19 01:03] VITALS: PULSE 89; RESP 16; O2SAT 99
--- NOTE | 2024-09-19 01:03 | W.ED.DIZZY ---
HPI - Dizziness General: Chief Complaint: Dizziness Stated Complaint: Dizzy/Headache Time Seen by Provider: 09/19/24 00:36 Source: patient Mode of arrival: ambulatory Limitations: no limitations History of Present Illness: HPI Narrative: 23-year-old female who states she has a history of migraine headaches. States she has been having a migraine tonight states she is also had some slight dizziness she denies any difficulty walking states this feels like her previous migraines does have photophobia and phonophobia rates her headache an 8 out of 10 denies this being the worst headache of her life denies any fevers Associated symptoms: Reports headache(s); Denies chest pain, chills, nausea or vomiting Related Data Allergies Allergy/AdvReac Type Severity Reaction Status Date / Time No Known Drug Allergies Allergy Unknown Verified 09/19/24 00:43 Review of Systems Const: Denies: fever(s), chills, body aches or change in appetite Eyes: Denies: blurry vision or eye discomfort ENMT: Denies: throat pain or dental pain Card: Denies: chest pain Resp: Denies: dyspnea GI: Denies: abdominal pain, nausea, vomiting or diarrhea Musc: Denies: neck pain or back pain Skin/Breast: Denies: rash Neuro: Reports: headache(s) PFSH ED PFSH: Medical History Psychiatric care No pertinent family history Surgical History No pertinent past surgical history Social History Smoking and tobacco/nicotine status: current every day tobacco/nicotine user (vape) Female Reproductive History: Date of last menstrual period: 08/17/24 Physical Exam Const: COMMON NORMALS: no acute distress, patient oriented x3 and healthy appearing HENMT: COMMON NORMALS: normocephalic and atraumatic HEAD & SCALP: normocephalic and atraumatic Eye: COMMON NORMALS: Equal, round and reactive pupils present and EOMs intact bilaterally PUPIL: Yes Equal, round and reactive pupils present EOM: No Nystagmus present Neck/C-Spine: COMMON NORMALS: full ROM and supple Chest: COMMONS NORMALS: normal inspection of the chest Resp: COMMON NORMALS: normal respiratory effort Cardio: COMMON NORMALS: regular rate, regular rhythm and No murmurs present (Cardio) RATE: regular rate RHYTHM: regular rhythm Extremity: COMMON NORMALS: normal to inspection and full ROM Neuro: COMMON NORMALS: patient oriented x3, moves all extremities and no focal motor deficits SPEECH: speech normal GAIT: Yes Normal gait present Psych: COMMON NORMALS: mental status grossly normal, Normal thought process present and cooperative THOUGHT PROCESS: Normal thought process present Skin: COMMON NORMALS: no rashes or lesions noted and no wounds GENERAL SKIN EXAM: no rashes or lesions noted Course Vital Signs: Vital signs: Vital Signs Temperature 98.4 F 09/19/24 00:34 Pulse Rate 82 09/19/24 02:05 Respiratory Rate 18 09/19/24 01:30 Blood Pressure 111/72 09/19/24 02:05 Pulse Oximetry 99 09/19/24 02:05 Oxygen Delivery Me thod Room Air 09/19/24 01:30 MDM - Dizziness Medical Decision Making Patient presents here with headache is likely migraine headache. She has no signs of meningitis she has had no vertigo here no nystagmus able to ambulate here without any difficulties her headaches much improved here she stable for discharge follow-up PCP return if worsening. Medical Records I reviewed the patient's medical records. 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
[2024-09-19] MEDS: diphenhydrAMINE 50 mg/mL SDV 1mL IVP (01:10)
[2024-09-19] MEDS: metoclopramide 5 mg/mL SDV 2 mL 10 MG IVP (01:10)
[2024-09-19] MEDS: ketorolac 30 mg/mL INJ 15 MG IVP (01:10)
[2024-09-19 01:30] VITALS: BP 111/72; PULSE 88; RESP 18; O2SAT 100
[2024-09-19 02:05] VITALS: BP 111/72; PULSE 82; O2SAT 99
== END 2024-09-19 02:06 | disposition home or self-care (01) ==
PROVIDERS: Emergency Provider Emergency Medicine; PCP Physician Assistant
DX: R51.9 Headache, unspecified (principal); F17.290 Nicotine dependence, other tobacco product, uncomplicated
CPT/HCPCS: 36415; 96374; 96375; 99284; J1200; J1885; J2060; J2765

== ENCOUNTER 2024-10-12 00:45 | Emergency (ER) | payer MEDICAID, SELFPAY ==
[2024-10-12 00:45] VITALS: BP 168/104; PULSE 83; RESP 15; TEMP 36.7; O2SAT 100; BMI 50.5
[2024-10-12] MEDS: ondansetron 2 mg/ML SDV 2 mL 8 MG IVP (02:09)
[2024-10-12] MEDS: ketorolac 30 mg/mL INJ IVP (02:13)
--- NOTE | 2024-10-12 02:13 | W.ED.HA ---
HPI - Headache General: Chief Complaint: Headache Stated Complaint: Migraine Pain going down to neck Time Seen by Provider: 10/12/24 01:56 History of Present Illness: 24-year-old female with history of migraine headaches she says secondary to weak eye muscles who presents emergency room with an intractable headache. She has had these before and taken [id number] medications which has not helped. She is having some photophobia. She is having trouble sleeping. Related Data Home Medications ?Medication ?Instructions ?Recorded ?Confirmed No Known Home Medications 10/08/24 10/08/24 Allergies Allergy/AdvReac Type Severity Reaction Status Date / Time No Known Drug Allergies Allergy Unknown Verified 10/12/24 00:54 Review of Systems Narrative: Constitutional symptoms: Negative except as documented in HPI. Skin symptoms: Negative except as documented in HPI. Eye symptoms: Negative except as documented in HPI. ENMT symptoms: Negative except as documented in HPI. Respiratory symptoms: Negative except as documented in HPI. Cardiovascular symptoms: Negative except as documented in HPI. Gastrointestinal symptoms: Negative except as documented in HPI. Genitourinary symptoms: Negative except as documented in HPI. Musculoskeletal symptoms: Negative except as documented in HPI. Neurologic symptoms: Negative except as documented in HPI. Psychiatric symptoms: Negative except as documented in HPI. Endocrine symptoms: Negative except as documented in HPI. PFS ED PFSH: Medical History Psychiatric care No pertinent family history Surgical History No pertinent past surgical history Social History Smoking and tobacco/nicotine status: never used tobacco/nicotine Female Reproductive History: Date of last menstrual period: 09/29/24 Physical Exam Narrative: EXAM NARRATIVE: General: Alert, no acute distress. Skin: warm and dry Head: Normocephalic Neck: Trachea midline Eye: Extraocular movements are intact. Ears, nose, mouth and throat: Oral mucosa moist Respiratory: Respirations are non-labored Musculoskeletal: Normal ROM Neurological: Alert and oriented, No focal neurological deficit observed. Psychiatric: Cooperative, appropriate mood & affect. Course Vital Signs: Vital signs: Vital Signs Temperature 98.0 F 10/12/24 00:45 Pulse Rate 83 10/12/24 00:45 Respiratory Rate 15 10/12/24 00:45 Blood Pressure 168/104 10/12/24 00:45 Pulse Oximetry 100 10/12/24 00:45 Oxygen Delivery Me thod Room Air 10/12/24 00:45 MDM - Headache Medical Decision Making Assessment and plan: Migraine headache - 50 mg IV Benadryl - 30 mg IV Toradol - 10 mg IV Reglan - 8 mg IV Zofran - 60 mg IV Norflex - Discharged home - Discussed plan with patient. Answered any questions. - Evaluation and treatment of this problem were appropriate in the emergency setting. No radiology studies performed this visit Discharge Plan Discharge Patient Disposition: Home Clinical Impression: Migraine Condition: Stable Prescriptions: No Action No Known Home Medications Discharge Orders: Discharge ED (Routine); Ordered 10/12/24 Ordered By: Penny Chance Referrals: Mauricio Sanabria MD [Physician] - 7-10 days (Please call for follow-up appointment with neurology if you and your PCP feel fit.) Georgia Norman PA [Primary Care Provider] - Discharge Diet: Usual diet Discharge Activity: Increase activity as tolerated Patient Instructions: Migraine Headache (ED), Opioid Safety, Pain Management Activity Restrictions/Additional Instructions: Thank you for choosing [facility] for your healthcare needs today. Please realize this is an emergency room and that we are providing you with a medical screening exam and this may not be complete and all inclusive of all the testing and or work up that you may need to determine your ailment or severity of your illness. You have been screened and evaluated and felt safe for discharge. Health conditions do change or evolve sometimes and as such it is important that you follow up with your Primary Doctor to be re checked, 3-5 days is a general good time frame for follow up. 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
[2024-10-12] MEDS: metoclopramide 5 mg/mL SDV 2 mL 10 MG IVP (02:23)
[2024-10-12] MEDS: orphenadrine 30 mg/mL Inj 2 mL 60 MG IVP (02:24)
[2024-10-12] MEDS: diphenhydrAMINE 50 mg/mL SDV 1mL 25 MG IVP (02:25)
[2024-10-12 02:29] VITALS: BP 141/106; PULSE 82; RESP 18; O2SAT 100
[2024-10-12 03:20] VITALS: BP 161/83; PULSE 85; O2SAT 100
== END 2024-10-12 03:00 | disposition home or self-care (01) ==
PROVIDERS: Emergency Provider Emergency Medicine; PCP Physician Assistant
DX: G43.909 Migraine, unspecified, not intractable, without status migrainosus (principal)
CPT/HCPCS: 96374; 96375; 99284; J1200; J1885; J2360; J2405; J2765

== ENCOUNTER → 2025-04-17 09:09 | Outpatient (BNVA) | payer MEDICAID, SELFPAY | PROVIDERS: PCP Physician Assistant; Visit Provider Registered Nurse Neonatal Intensive Care | DX: R50.9 Fever, unspecified (principal); Z20.822 Contact with and (suspected) exposure to COVID-19 | CPT/HCPCS: 87426 ==

== ENCOUNTER 2025-06-13 23:43 | Emergency (ER) | payer MEDICAID, SELFPAY ==
[2025-06-13 23:46] VITALS: BP 135/83; PULSE 88; RESP 16; TEMP 36.6; O2SAT 100; BMI 41.0
--- OUTSIDE RECORDS SUMMARY | 2025-06-13 23:51 | XMS_ITS | Data Portability ---
Author Organization [facility] Miguelangel LarkinUnited HospitalPeterson, [facility] Address [address] [address] Care Team Providers Care Manager Requirements Name Role Phone OLIVAREZROSALVA Primary Care Provider Unavailabl e Assessment No assessment recorded. Plan of Treatment Reminders Order Date Submit Date Provider Last Modified By Organization Details Last Modified Time Details Appointments None recorded. Lab CMP, serum or plasma 2024 025 [facility] 1 [facility], [address], [address], 06:59:49 CBC 2024 025 [facility] 1 [facility], [address], [address], 06:59:49 thyrotropin , QN, serum or plasma 2024 025 [facility] 1 [facility], [address], [address], 06:59:49 Referral None recorded. Procedures None recorded. Surgeries None recorded. Imaging None recorded. Medication Orders prednisone 20 mg tablet 2024 [facility] [place], [address] [place], [address], 18:44:47 azithromyci n 250 mg tablet 2024 025 [facility], [address] [place] [address], [address], 17:29:11 cetirizine 10 mg tablet [address], [address], 16:30:54 fluticasone propionate 50 mcg/actuati on nasal spray,suspe nsion [address], [address], 16:30:57 Zepbound 12.5 mg/0.5 mL subcutaneou s pen injector [address], [address], 17:29:10 Zepbound 15 mg/0.5 mL subcutaneou s pen injector [address], [address], 18:44:47 Zepbound 7.5 mg/0.5 mL subcutaneou s pen injector [address], [address], 5 12:12:40 Zepbound 10 mg/0.5 mL subcutaneou s pen injector [address], [address] [place] [address], [address], 5 14:07:11 Patient TargetsNo targets recorded. Patient InstructionsNo instructions recorded. Reason for Referral None Reported. Results Created Date Observation Date Name Description Value Unit Range Abnormal Flag Note LastModifiedBy Organization Detail LastModifiedTime 03/20/2003/15/2025 US, trans vagin al No observ ation record ed. [email or web address] [facility] [address] [place], [address], 03/22/2025 09:09:49 Result Notes None recorded. Problems Name Problem SNOMED Code Status Onset Date Resolution Date Notes Provider Name and Address Organization Details Recorded Time Allergic rhinitis 76666991 Active 2023 PAVEL bar [facility] 5 16:51:34 Morbid obesity 871511754 Active 2024 PAVEL bar [facility] 5 08:47:25 Mass of ovary 551838408 Active 2024 PAVEL bar [facility] 5 19:30:32 Cyst of left ovary 05035277344671 108 Active 2024 PAVEL bar [facility] 5 19:30:24 Irregular periods 91941348 Active 2024 PAVEL MOTA [facility] 5 08:06:21 Problem Notes None recorded. Procedures Surgical History Date Name Laterality Status Provider Name and Address Organization Details Recorded Time 4 tonsilectomy/ adenoids completed Heidi Oh [facility] 03/23/2024 09:25:04 0 section completed ROSALVA OLIVAREZ PA-C [address] [place], [address], [facility] 08/14/2023 11:48:40 Imaging Results None recorded. Procedure Notes None recorded. Medical Equipment None Reported. Allergies Allergen ID Allergen Name Allergen Category Reaction Reaction Severity Criticality Documentation Date Start Date Code Code System Note Provider Name and Address Organization Details Recorded Time 58003 Product containin g penicilli n (product) medicatio n rash moderate high 05/11/20252024 56226 8001 SIENNA OLIVAREZ PA-C [address] [place], [address], [facility] 14:04:34 Medications Name Sig Start Date Stop Date Status Note LastModified by Organization Details LastModified Time Prescript ion - Prior Authoriza tion Request active Not Available Not Available Not Available amoxicill in 500 mg capsule TAKE ONE capsule BY MOUTH TWICE DAILY FOR 10 DAYS 01/20 completed Not Available Not Available Not Available metformin 500 mg tablet TAKE 1 TABLET BY MOUTH TWICE DAILY 05/11 completed Not Available Not Available Not Available doxycycli ne hyclate 100 mg capsule Take 1 capsule twice a day by oral route. 06/12 completed Not Available Not Available Not Available clindamyc in HCl 300 mg capsule take 1 capsule BY MOUTH THREE TIMES DAILY FOR SEVEN DAYS 02/10 completed Not Available Not Available Not Available trazodone 50 mg tablet TAKE 2 TABLETS BY MOUTH AT BEDTIME NEEDED FOR insomnia 02/10 completed Not Available Not Available Not Available cetirizin e 10 mg tablet TAKE 1 TABLET BY MOUTH EVERY DAY active Not Available Not Available No t Available azithromy leonarda 250 mg tablet TAKE 2 TABLETS BY MOUTH TODAY, THEN TAKE 1 TABLET DAILY ON DAYS 2-5 06/05 completed Not Available Not Available Not Available ibuprofen 800 mg tablet TAKE 1 TABLET BY MOUTH THREE TIMES DAILY NEEDED FOR PAIN 06/05 completed Not Available Not Available Not Available Lidocaine Viscous 2 % mucosal solution (USE 5 ML) SATURATE GAUZE AND APPLY TO AFFECTED AREA EVERY 3 HOURS DIRECTED FOR 7 DAYS 08/13 completed Not Available Not Available Not Available tizanidin e 4 mg tablet TAKE 1 TABLET BY MOUTH THREE TIMES DAILY NEEDED 05/12 completed Not Available Not Available Not Available fluconazo le 150 mg tablet TAKE 1 TABLET BY MOUTH EVERY DAY FOR THREE DAYS 02/10 completed Not Available Not Available Not Available hydrocodo ne 5 mg-acetam inophen 325 mg tablet TAKE 1 TO 2 TABLETS BY MOUTH EVERY 6 HOURS NEEDED FOR PAIN 05/12 completed Not Available Not Available Not Available prednison e 20 mg tablet Take 1 tablet every day by oral route for 6 days. 2024 active Not Available Not Available Not Avai lable rizatript an 10 mg tablet TAKE 1 TABLET BY MOUTH EVERY DAY NEEDED active Not Available Not Available No t Available ondansetr on 8 mg disintegr ating tablet DISSOLVE ONE TABLET ON top of THE TONGUE EVERY 8 HOURS NEEDED FOR NAUSEA AND VOMITING 01/21 completed Not Available Not Available Not Available amoxicill in 875 mg tablet TAKE 1 TABLET BY MOUTH TWICE DAILY FOR 10 DAYS 06/12 completed Not Available Not Available Not Available benzonata te 100 mg capsule take 1 capsule BY MOUTH THREE TIMES DAILY NEEDED for 10 days 08/13 completed Not Available Not Available Not Available mupirocin 2 % topical ointment apply a small amount TO THE affected area THREE TIMES DAILY 03/23 completed Not Available Not Available Not Available fluoxetin e 20 mg capsule take 1 capsule BY MOUTH EVERY DAY 05/12 completed Not Available Not Available Not Available fluticaso ne propionat e 50 mcg/actua tion nasal spray,magdy pension USE 2 SPRAYS intranas al EVERY DAY for 10 days active Not Available Not Available No t Available doxycycli ne hyclate 100 mg tablet TAKE 1 TABLET BY MOUTH TWICE DAILY with meals FOR ONE MONTH 05/12 completed Not Available Not Available Not Available amoxicill in 875 mg-potass ium clavulana te 125 mg tablet TAKE 1 TABLET BY MOUTH TWICE DAILY for 7 days 05/11 completed Not Available Not Available Not Available Ventolin HFA 90 mcg/actua tion aerosol inhaler INHALE TWO PUFFS EVERY 4 HOURS NEEDED active Not Available Not Available No t Available clindamyc in 1 % lotion APPLY TO THE AFFECTED AREA(S) UP TO TWICE DAILY NEEDED FOR break outs 05/12 completed Not Available Not Available Not Available meloxicam QD 08/13 completed Recorded 12/01/19 22 10:37AM by Darell Richards, Office Visit; Refill Quantity : 30; Tablet; Not Available Not Available Not Available levocetir izine 5 mg tablet TAKE 1 TABLET BY MOUTH EVERY DAY 02/10 completed Not Available Not Available Not Available Zepbound 10 mg/0.5 mL subcutane ous pen injector inject 10mg SUBCUTAN EOUSLY every week FOR 28 DAYS 05/11 completed Not Available Not Available Not Available Zepbound 5 mg/0.5 mL subcutane ous pen injector inject 5mg SUBCUTAN EOUSLY every week 03/09 completed Not Available Not Available Not Available Zepbound 2.5 mg/0.5 mL subcutane ous pen injector inject 2.5mg SUBCUTAN EOUSLY every week 03/09 completed Not Available Not Available Not Available Zepbound 15 mg/0.5 mL subcutane ous pen injector Inject 15 mg every week by subcutan eous route for 28 days. 2024 active Not Available Not Available Not Avai lable Zepbound 12.5 mg/0.5 mL subcutane ous pen injector inject 12.5mg SUBCUTAN EOUSLY every week 06/05 completed Not Available Not Available Not Available Zepbound 7.5 mg/0.5 mL subcutane ous pen injector inject 7.5mg SUBCUTAN EOUSLY every week FOR 28 DAYS 03/09 completed Not Available Not Available Not Available Vitals Date Recorded Body mass index (BMI) Body weight Provider Name and Address Organization Details Last Updated DateTime 01/06/2025 47.1 kg/m2 399833.02 g ROSALVA OLIVAREZ PA-C [address] [place] [address], [address], [place] [facility] 01/06/2025 11:04:20 Date Recorded Body height Oxygen saturation Oxygen saturation in Arterial blood by Pulse oximetry Heart rate Respiratory rate Body temperature Systolic And Diastolic Provider Name and Address Organization Details Last Updated DateTime 06/06/202 5 149.86 cm 97 % 97 % 78 /min 18 /min 98 [degF] 132/80 mm[Hg] PAVEL MOTA [facility] 5 10:30:26 Date Recorded Body height Body mass index (BMI) Body weight Oxygen saturation Oxygen saturation in Arterial blood by Pulse oximetry Heart rate Respiratory rate Body temperature Systolic And Diastolic Provider Name and Address Organization Details Last Updated DateTime 5 149.86 cm 41.8 kg/m2 15677.6 2 g 98 % 98 % 72 /min 18 /min 97.9 [degF] 126/80 mm[Hg] PAVLE MOTA [facility] 5 15:47:20 Date Recorded Body height Body mass index (BMI) Body weight Oxygen saturation Oxygen saturation in Arterial blood by Pulse oximetry Heart rate Respiratory rate Body temperature Systolic And Diastolic Provider Name and Address Organization Details Last Updated DateTime 5 149.86 cm 42 kg/m2 52214.2 1 g 99 % 99 % 76 /min 18 /min 97 [degF] 130/70 mm[Hg] PAVEL MOTA [facility] 5 13:42:14 Date Recorded Body height Body mass index (BMI) Body weight Oxygen saturation Oxygen saturation in Arterial blood by Pulse oximetry Heart rate Respiratory rate Systolic And Diastolic Provider Name and Address Organization Details Last Updated DateTime 5 149.86 cm 41.6 kg/m2 60845.0 3 g 98 % 98 % 86 /min 16 /min 126/66 mm[Hg] Monique Ford [facility] 5 17:27:03 Social History Question Answer Notes LastModified by Organizat ion Details LastModified Time Tobacco Smoking Status Current Every Day Smoker she vapes Nathalia bar [facility] 09/15/2024 18:18:01 What Was The Date Of Your Most Recent Tobacco Screening? 06/05/2025 [email or web address] Information not available 06/05/2025 Sex: Unknown Functional Status Question Answer Note LastModified by Organizat ion Details LastModified Time Do you use any illicit or recreational drugs? No [email or web address] Information not available 01/22/2024 What is your level of alcohol consumption? None [email or web address] Information not available 09/15/2024 Mental Status None recorded. Family History Nothing Reported Notes:Heart disease in male family member before age 55, Breast Cancer, Bladder problems, Asthma, Arthritis, Myocardial Infarction; Maternal Grandfather Medical History No medical history recorded. Gynecological History Statement/Question Response Menses Monthly N Obstetrics History GPAL:G 0 P 0 0 0 0 Immunizations Vaccine Type Date Status Note Provider Nam e and Address Organization Details Recorded Time Hib, unspecified formulation 2 completed Destiney bar [facility] 06/12/2023 16:22:07 MMR 2 completed Destiney bar [facility] 06/12/2023 16:22:07 [facility] 5 [facility]23 16:22:07 D[facility]P-IPV 5 [facility] 06/12/2023 16:22:08 DTaP-IPV 1 completed Destiney bar [facility] 06/12/2023 16:22:08 Tdap 5 [facility] 06/12/2023 16:22:08 varicella 2 [facility] 06/12/2023 16:22:08 Hep B, unspecified formulation 2 completed Destiney bar [facility] 06/12/2023 16:22:08 Hep B, unspecified formulation 1 completed Destiney bar [facility] 06/12/2023 16:22:08 Hep B, unspecified formulation 1 completed Destiney bar, [facility] 06/12/2023 16:22:08 VTlZ-Cqw-APG 1 completed Destiney bar [facility] 06/12/2023 16:22:08 MXxZ-Xld-TKP 1 completed Destiney bar [facility] 06/12/2023 16:22:08 HPV, quadrivalent 2 completed Destiney bar, [facility] 06/12/2023 16:22:08 Hep A, ped/adol, 2 dose 5 completed Destiney bar [facility] 06/12/2023 16:22:08 Hep A, ped/adol, 2 dose 2 completed Destiney bar [facility] 06/12/2023 16:22:08 meningococcal MCV4P 5 completed Destiney bar [facility] 06/12/2023 16:22:08 DTaP 2 completed Destiney bar [facility] 06/12/2023 16:22:08 Tdap 9 completed Destiney bar [facility] 06/12/2023 16:22:08 Past Encounters Encounter ID Performer Location Encounter Start Date Encounter Closed Date Diagnosis/Indication Diagnosis SNOMED-CT Code Diagnosis ICD10 Code Diagnosis IMO Codes Diagnosis Note [id number] NICHO CISNEROS [facility] ([facility]) [address] [place] [address] 10/26/2022 14:04:01 10/26/2022 14:23:19 Toothache 18290709 K08.89 [id number] LYNN VIZCARRA NP [facility] ([facility]) [address] [place] [phone] 02/13/2023 11:38:03 02/13/2023 13:47:13 Upper respiratory infection 46820702 J06.9 Discussed to utilize Cetirizine and Flonase for post nasal and nasal drainageUs e cool mist humidifier in bedroom at nightOTC Tylenol as label directs for any fevers/dis comfortOTC cough medicine or honey at night to help with coughPush increased fluids - water, pedialyteU tilize saline nasal spraySeek follow up at the ED if- no longer drinking fluids, decreased/ no urine output, increased work of breathing. Follow up with PCP or return to walk-in clinic if worsening symptomsRe turn to clinic if any changes, any worsening, any concerns.P atient verbalized understand ing of plan [id number] Irwin Noyola MD [facility] ([facility]) [address] [place] [phone] 04/07/2023 17:28:22 04/07/2023 18:51:54 Bronchitis 82789141 J40 [id number] NICHO CABRERA [facility] ([facility]) [address] [place] [id number] 06/12/2023 15:53:00 06/21/2023 20:56:54 Amenorrhea 53950531 N91.2 Pain in pelvis 02918578 R10.2 [id number] NEHA STORY [facility] ([facility]) [address] [place] [phone] 07/04/2023 11:26:25 07/06/2023 13:19:33 Viral screening 092390211 Z11.52 Acute pharyngitis 256807 003 J02.9 Negative COVID and strep tests today. Will start benzonatat e PRN for cough. Can take tylenol and ibuprofen PRN for pain. If no improvemen t in 7-10 days, should return for further evaluation . Patient verbalizes understand ing. [id number] ROSALVA OLIVAREZ PA-C [facility] ([facility]) [address] [place] [phone] 08/14/2023 10:46:53 08/14/2023 15:05:06 Chronic pharyngitis 408398 J31.2 Seasonal a llergic rhinitis 041903267 J30.2 Migraine 20905848 G43.90 9 [id number] TROY GARCIA [facility] ([facility]) [address] [place] [id number] 01/22/2024 13:44:52 01/24/2024 18:45:44 Acute pustular skin eruption 1857090523 R21 Discussed use of ointment and clinda. [id number] ROSALVA OLIVAREZ PA-C [facility] ([facility]) [address] [place] [address] 02/11/2024 10:37:29 02/11/2024 11:43:27 Maculopapular eruption 739985628 R21 rocasea vs allergyFla red with heat and sun. responds to steroids. [id number] TROY GARCIA [facility] ([facility]) [address] [place] [phone] 03/23/2024 09:21:20 03/23/2024 10:57:18 Low back pain 157276142 M54.50 Discussed to take 400mg ibuprofen twice a day for next 5 days with food.Use tizanidine as prescribed .Apply a heating pad for 10 minutes every 2 hours while awake. Perform slow stretches 2 times a day.F/u with PCP in 4-5 days if symptoms persist or worsen.Sta rt physical therapy. [id number] Irwin Noyola MD [facility] ([facility]) [address] [place] [phone] 05/12/2024 13:54:37 05/12/2024 14:40:34 Allergic rhinitis 89176605 J30.9 Patient does have some evidence of allergies and recommend Flonase Upper resp iratory infection 31589292 J06.9 Patient presented with symptoms of viral upper respirator y infection. Advised to drink plenty of fluids, run a cool-mist humidifier in room at night, gargle salt water for sore throat, and get plenty of rest. Patient should avoid over-exert ion and reduce exposure to irritants such as smoke, cold, dry air, and dust. Treatment currently involves symptomati c relief. Patient may take acetaminop hen or ibuprofen as directed to reduce fever and body aches. Antihistam ine and decongesta nt usage was discussed and recommenda tions made. Patient understood these instructio ns and will follow up in the office in 7-10 days if symptoms not improving. [id number] ROSALVA OLIVAREZ PA-C [facility] ([facility]) [address] [place] [id number] 05/17/2024 10:19:06 05/18/2024 10:27:03 Atopic dermatitis 33875797 L20.9 Polymyalgia 04027818 M35 .3 Acute urticaria 06797787 9 L50.9 Hyperglycemia 51930817 R 73.9 [id number] Irwin Noyola MD [facility] ([facility]) [address] [place] [id number] 09/15/2024 18:03:29 09/22/2024 06:46:14 Upper respiratory infection 69650897 J06.9 Patient presented with symptoms of viral upper respirator y infection. Advised to drink plenty of fluids, run a cool-mist humidifier in room at night, gargle salt water for sore throat, and get plenty of rest. Patient should avoid over-exert ion and reduce exposure to irritants such as smoke, cold, dry air, and dust. Treatment currently involves symptomati c relief. Patient may take acetaminop hen or ibuprofen as directed to reduce fever and body aches. Antihistam ine and decongesta nt usage was discussed and recommenda tions made. Patient understood these instructio ns and will follow up in the office in 7-10 days if symptoms not improving. Cough 04791317 R05.9 flu neg [id number] ROSALVA OLIVAREZ PA-C [facility] ([facility]) [address] [place] [id number] 11/02/2024 14:31:45 11/02/2024 16:39:25 Pain in pelvis 96434452 R10.2 Asthma 495543272 J45.90 9 Migraine 53680612 G43.90 9 Morbid obesity 793046268 E66.01 Pt has tried and failed a 3 month at home weight loss program of counting calories and tracking food.I recommend starting a GLP1 wt lossI explained how GLP1 help to lose weight. We discussed possible SE of nausea, vomiting, bloating and constipati on. Showed how to use self injection pen. All questions were answered to satisfacti on [id number] ROSALVA OLIVAREZ PA-C [facility] ([facility]) [address] [place] [id number] 11/30/2024 14:02:06 12/01/2024 12:40:46 [id number] ROSALVA OLIVAREZ PA-C [facility] ([facility]) [address] [place] [id number] 01/06/2025 10:24:00 01/06/2025 11:11:22 Morbid obesity 805590994 E66.01 25# wt loss in 2 months. Doing great. will keep tritrating up her doseSome constipati on. recommende d adding colace or miralax. Cyst of left ovary [address] 0737987 N83.202 [id number] watching a solid 9 mm area on the left ovary. has repeat u/s in 8.25 [id number] ROSALVA OLIVAREZ PA-C [facility] ([facility]) [address] [place] [phone] 03/15/2025 14:29:15 03/17/2025 14:30:29 [id number] ROSALVA OLIVAREZ PA-C [facility] ([facility]) [address] [place] [id number] 03/15/2025 15:20:22 03/15/2025 16:42:39 Morbid obesity 630592971 E66.01 43# wt loss on the Zepbound since starting in November No se. she is doing great.no questions. Mass of ovary 781748834 N83.8 [id number] she had her f/u u/s today. will call her with results tomorrow [id number] ROSALVA OLIVAREZ PA-C [facility] ([facility]) [address] [place] [id number] 05/11/2025 13:31:47 05/11/2025 14:24:19 Acute bacterial sinusitis 93178805 J01.90 B96.89 50970 Morbid obesity 389509154 E66.01 43# wt loss on the Zepbound since starting in November No se. she is doing great.no questions. increase dose due to plateau. Polycystic ovary syndrome 963405745 E28.2 [id number] did not do well on metformin [id number] NICHO MORAN [facility] ([facility]) [address] [place] [address] 06/05/2025 17:19:20 06/05/2025 18:03:46 Acute folliculitis 330186264 L73.9 12456912 Health Concerns Section Related Observation LastModified by Organization Detai ls LastModified Time None Recorded Concern Status LastModified by Organization Details LastModified Time None Recorded Advance Directives Directive None Recorded Payers Insurance Date Sequence Insurance Name Policy Number Policy Sebastian Covered Member ID Sebastian Member ID Guarantor Name 07/06/2023 1 *SELF PAY* Vicki Byers 06/05/2025 [place] [facility] Kia Byers [id number] Kia Byers 12/05/2024 1 [facility] ([place]PL[place]) [facility] Kia Sheriff [id number] Kia Byers 03/15/2025 1 [place] Kia Byers [id number] Kia Byers 12/05/2024 1 [employer] [place] [id number] Kia Sheriff [id number] Kia Byers 12/05/2024 1 [place] Kia Sheriff [id number] Kia Byers 06/05/2025 1 [facility] - [place]) [facility] Kia Byers [id number] Kia Byers Notes Date Note Type Note Provider Name and Address Organization Details Recorded Time 01/06/2025 text/html Skin LesionRepor loraine by PatientHPIFor location, patient reportsabdomen. For quality, patient reportsbecoming more symptomatic. For severity, patient reportsmoderate. For timing, patient reportsabruptandconsta nt. ObesityReported by PatientHPIFor comorbidities, patient reportspolycystic ovary syndrome. For lifestyle changes, patient reportsmotivated to continue lifestyle changes,motivated to make lifestyle changes,losing weight, andexercising more. For nutrition, patient reportslow-fat diet yes,low-carbohydrate diet yes,balanced low-calorie diet yes,high-protein diet yes,very low calorie diet yes, andintermittent fasting yes. For physical activity, patient [email or web address] minutes of moderate exercise per weekandweekly screen time (electronics) : 12 hours. 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 My 5 year old c section scar is opening up a little and discuss vaginal us ROSALVA OLIVAREZ PA-C [address] [place] [address], [phone], [facility] 01/06/2025 11:09:07 03/15/2025 text/html ObesityReported by PatientHPIFor diagnosis summary, patient reportsage at start of weight gain 5. For lifestyle changes, patient reportsmotivated to continue lifestyle changes,motivated to make lifestyle changes,losing weight, andexercising more. For nutrition, patient reportslow-fat diet yes,low-carbohydrate diet yes,balanced low-calorie diet yes,high-protein diet yes,very low calorie diet yes, andintermittent fasting yes. For physical activity, patient minutes of moderate exercise per weekandweekly screen time (electronics) : 42 hours. For medication education, patient reportsverbalizes understanding of potential medication side effects yes,verbalizes understanding of medication administration yes, andverbalizes understanding of role of diet as primary therapy yes. ROSALVA OLIVAREZ PA-C [address] [place] [address], [id number], [facility] 03/15/2025 16:36:20 05/11/2025 text/html Upper Respirator y SymptomsReported by PatientUpper Respiratory SymptomsFor quality, patient reportsproductive cough,congested, andnasal discharge. For location, patient reportschest,nasal, andface. For severity, patient reportsmoderate. For duration, patient reportssymptoms lasting less than 2 weeks. For onset/timing, patient reportssudden. For context, patient reportsno sick contacts,no foreign travel, andnon-smoker. For associated symptoms, patient reportsno chest pain,no cyanosis,no change in number of pillows needed to sleep at night,no sweats,no fever,no morning cough,no vomiting,no diarrhea,no rash,no nausea,no headache,no chills,no malaise, andno conjunctivitis. Musculoskeletal PainReported by PatientHPIFor quality, patient reportssharp,tingling, anddull. For location, patient reportsleft hip. For duration, patient reportspresent for 1-6 months. For timing, patient reportsconstant. For alleviating factors, patient reportschanging position. For aggravating factors, patient reportsmovement/positi oning,bending over, andtwisting. I have a lot of pressure in the inside left buttock it hurts to sit and when I stand up there's pressure seems like it started when I started losing weight. I need labs done ROSALVA OLIVAREZ PA-C [address] [place], [id number], [facility] 05/11/2025 14:21:17 06/05/2025 text/html ROS as noted in the HPI walk in patientpatient is here today for folictolitis on her face, neck and chest that is flared up NICHO MORAN [address] [place], [id number], [facility] 06/05/2025 17:51:21 OBGyn Episode No OBEpisode recorded.
--- NOTE | 2025-06-14 | ED_ITS ---
HPI - Skin/Abscess/Foreign Bdy General: Chief complaint: Skin/Abscess/Foreign Body Stated complaint: Rash Time Seen by Provider: 06/13/25 23:52 Source: patient Mode of arrival: ambulatory Limitations: no limitations History of Present Illness: Patient is a 24-year-old female presents to ED today with a complaint of a rash to her face, neck, chest, upper back. She states she has struggled with this r mally over the past 3 years. Patient has been seen multiple times for this including 2 dermatology visits as well as visits through her primary care office. She did at one point have the rash biopsied through dermatology which showed folliculitis. Patient states she has been prescribed triamcinolone ointment, oral doxycycline, benzyl peroxide washes, salicylic acid washes all without much relief. She states rash does improve while on oral steroids but does not want to have to keep taking these. She does have a history of PCOS and is not on medication for this. She does feel like rash is worse in the summer and with heat/sweating. She has no systemic symptoms. MD complaint: rash Onset (ago): year(s) Tetanus up to date: yes Location: face, neck and chest Severity: moderate Relieving factors: none Exacerbating factors: other (heat/sweat) Context: none Associated symptoms: Deny chills or fever(s) Related Data Previous Rx's ?Medication ?Instructions ?Recorded ibuprofen 800 mg tablet 800 mg PO TID PRN pain #20 t abs 03/28/25 Allergies Allergy/AdvReac Type Severity Reaction Status Date / Time Penicillins Allergy ALGY-Hives Verified 06/13/25 23:52 Review of Systems Const: Denies: fever(s), chills, body aches, fatigue or malaise Musc: Denies: neck pain, back pain, extremity pain, extremity swelling, joint pain or joint swelling Skin/Breast: Reports: rash Neuro: Denies: headache(s), numbness in extremities, weakness in extremities or sensory changes PFSH ED PFSH: Medical History No pertinent family history Surgical History No pertinent past surgical history Social History Smoking and tobacco/nicotine status: current every day tobacco/nicotine user Physical Exam Const: COMMON NORMALS: no acute distress, average body habitus, no limitations, healthy appearing, alert and well nourished GENERAL APPEARANCE: cooperative Neck/C-Spine: COMMON NORMALS: no lymphadenopathy Neuro: SENSORIUM/ORIENTATION: Yes alert Skin: NARRATIVE SKIN EXAM: pt has a rash to face, anterior chest, upper back, shoulders consisting of inflamed pustules and open/closed comedones consistent with acne vulgaris Course Vital Signs: Vital signs: Vital Signs Temperature 97.8 F 06/13/25 23:46 Pulse Rate 88 06/13/25 23:46 Respiratory Rate 16 06/13/25 23:46 Blood Pressure 135/83 06/13/25 23:46 Pulse Oximetry 100 06/13/25 23:46 Oxygen Delivery Me thod Room Air 06/13/25 23:46 MDM - Skin/Abscess/Foreign Bdy Medicial Decision Making Rash has been present for approximately 3 years. I do not have any concern for life-threatening etiology. Clinically I would suspect this would be acne vulgaris. Did discuss having her follow-up with dermatology for different management as she has seemed to fail therapies up until this point. Differential Diagnosis Likely allergic reaction to drug, eczema, impetigo and contact dermatitis Medical Records I reviewed the patient's medical records. No radiology studies performed this visit Discharge Plan Discharge Patient Disposition: Home Clinical Impression: Acne vulgaris Condition: Stable Prescriptions: No Action ibuprofen 800 mg tablet 800 mg PO TID PRN (Reason: pain) Qty: 20 0RF Discharge Orders: Discharge ED (Routine); Ordered 06/14/25 Ordered By: Rubi Nguyễn Referrals: Georgia Norman PA [Primary Care Provider, [facility]] Patient Instructions: Patient Portal & [place] Instructions Activity Restrictions/Additional Instructions: As we discussed, I think it is reasonable to see dermatology again for further evaluation and different management regarding your rash/symptoms. Print Language: Yakut Coding Level of Care Code ED [employer] Rep[employer]man for [employer]
[2025-06-14 00:29] VITALS: BP 135/83; PULSE 88; O2SAT 100
== END 2025-06-14 00:30 | disposition home or self-care (01) ==
PROVIDERS: Emergency Provider Physician Assistant; PCP Physician Assistant
DX: L70.0 Acne vulgaris (principal); Z72.0 Tobacco use
CPT/HCPCS: 99281

== ENCOUNTER 2025-06-18 01:58 | Emergency (ER) | payer MEDICAID, SELFPAY ==
--- OUTSIDE RECORDS SUMMARY | 2025-06-18 02:05 | XMS_ITS | Data Portability ---
Author Organization [facility] Miguelangel Vasquez [facility] Address [address] [address] Care Team Providers Care Paper Cutter Operator Name Role Phone OLIVAREZROSALVA Primary Care Provider Unavailabl e Assessment No assessment recorded. Plan of Treatment Reminders Order Date Submit Date Provider Last Modified By Organization Details Last Modified Time Details Appointments None recorded. Lab CMP, serum or plasma 2024 025 [facility] 1 [facility], [address] [facility], [address], [address], 06:59:49 CBC 2024 [facility], [address], [address], 06:59:49 thyrotropin , QN, serum or plasma 2024 025 [facility] 1 [facility], [address] [facility], [facility], [place], [address], 06:59:49 Referral None recorded. Procedures None recorded. Surgeries None recorded. Imaging None recorded. Medication Orders clindamycin 1 % topical gel 2024 [facility] [place], [address] [place], [address], 17:21:08 minocycline 100 mg capsule 2024 [facility], [address] [place] [address], [address], 17:21:08 prednisone 20 mg tablet [address], [address], 14:50:03 azithromyci n 250 mg tablet [address], [address], 17:29:11 cetirizine 10 mg tablet [address], [address], 16:30:54 fluticasone propionate 50 mcg/actuati on nasal spray,suspe nsion 2024 [facility], [address] [place] [address], [address], 16:30:57 Zepbound 12.5 mg/0.5 mL subcutaneou s pen injector 2024 [facility], [address] [place] [address], [address], 17:29:10 Zepbound 15 mg/0.5 mL subcutaneou s pen injector 2024 [facility], [address] [place] [address], [address], 18:44:47 Patient TargetsNo targets recorded. Patient InstructionsNo instructions recorded. Reason for Referral None Reported. Results Created Date Observation Date Name Description Value Unit Range Abnormal Flag Note LastModifiedBy Organization Detail LastModifiedTime 03/20/2003/15/2025 [place], joon arredondo No observ ation record ed. [email or web address] [facility] [address] [place], [address], 03/22/2025 09:09:49 Result Notes None recorded. Problems Name Problem SNOMED Code Status Onset Date Resolution Date Notes Provider Name and Address Organization Details Recorded Time Allergic rhinitis 89799272 Active 2023 PAVEL bar [facility] 5 16:51:34 Morbid obesity 005967400 Active 2024 PAVEL MOTA [facility] 5 08:47:25 Mass of ovary 642170362 Active 2024 PAVELMILE MOTA [facility] 5 19:30:32 Cyst of left ovary 72230972462077 108 Active 2024 PAVEL MOTA [facility] 5 19:30:24 Irregular periods 08453714 Active 2024 PAVEL MOTA [facility] 5 08:06:21 Problem Notes None recorded. Procedures Surgical History Date Name Laterality Status Provider Name and Address Organization Details Recorded Time 4 tonsilectomy/ adenoids completed Antoniona Althea [facility] 03/23/2024 09:25:04 0 section completed ROSALVA OLIVAREZ PA-C [address] [place], [address], [place] [facility] 08/14/2023 11:48:40 Imaging Results None recorded. Procedure Notes None recorded. Medical Equipment None Reported. Allergies Allergen ID Allergen Name Allergen Category Reaction Reaction Severity Criticality Documentation Date Start Date Code Code System Note Provider Name and Address Organization Details Recorded Time 29878 Product containin g penicilli n (product) medicatio n rash moderate high 05/11/20252024 73306 8001 SNVIC OLIVAREZ PA-C [address] [place], [address], [facility], [facility] 14:04:34 Medications Name Sig Start Date Stop [...] completed Not Available Not Available Not Available minocycli ne 100 mg capsule Take 1 capsule every day by oral route for 30 days. 2024 active Not Available Not Available Not Avai lable prednison e 20 mg tablet TAKE 1 TABLET BY MOUTH EVERY DAY FOR SIX DAYS 06/15 completed Not Available Not Available Not Available rizatript an 10 mg tablet TAKE 1 [...] Available Not Available Not Available clindamyc in 1 % topical gel APPLY A THIN LAYER TO THE AFFECTED AREA(S) BY TOPICAL ROUTE 2 TIMES PER DAY 2024 active Not Available Not Available Not Avai lable benzonata te 100 mg capsule take 1 [...] 15 mg/0.5 mL subcutane ous pen injector inject 15mg SUBCUTAN EOUSLY every week active Not Available Not Available No t Available Zepbound 12.5 mg/0.5 mL subcutane ous pen injector inject 12.5mg SUBCUTAN EOUSLY every week 06/05 completed Not Available Not Available Not Available Zepbound 7.5 mg/0.5 mL subcutane ous pen injector inject 7.5mg SUBCUTAN EOUSLY every week FOR 28 DAYS 03/09 completed Not Available Not Available Not Available Vitals Date Recorded Body height Body mass index (BMI) Body weight Oxygen saturation Oxygen saturation in Arterial blood by Pulse oximetry Heart rate Respiratory rate Body temperature Systolic And Diastolic Provider Name and Address Organization Details Last Updated DateTime 149.86 cm 41.8 kg/m2 64670.6 2 g 98 % 98 % 72 /min 18 /min 97.9 [degF] 126/80 mm[Hg] PAVEL MOTA [facility] 5 15:47:20 Date Recorded Body height Body mass index (BMI) Body weight Oxygen saturation Oxygen saturation in Arterial blood by Pulse oximetry Heart rate Respiratory rate Body temperature Systolic And Diastolic Provider Name and Address Organization Details Last Updated DateTime 5 149.86 cm 42 kg/m2 83241.2 1 g 99 % 99 % 76 /min 18 /min 97 [degF] 130/70 mm[Hg] PAVEL MOTA [facility] 5 13:42:14 Date Recorded Body height Body mass index (BMI) Body weight Oxygen saturation Oxygen saturation in Arterial blood by Pulse oximetry Heart rate Respiratory rate Systolic And Diastolic Provider Name and Address Organization Details Last Updated DateTime 5 149.86 cm 41.6 kg/m2 75334.0 3 g 98 % 98 % 86 /min 16 /min 126/66 mm[Hg] Monique Ford [facility] 5 17:27:03 Date Recorded Body height Body mass index (BMI) Body weight Oxygen saturation Oxygen saturation in Arterial blood by Pulse oximetry Heart rate Respiratory rate Body temperature Systolic And Diastolic Provider Name and Address Organization Details Last Updated DateTime 5 149.86 cm 40.4 kg/m2 83552.4 7 g 97 % 97 % 80 /min 18 /min 98 [degF] 122/70 mm[Hg] PAVEL MOTA [facility] 5 13:50:20 Social History Question Answer Notes LastModified by Mailanaat ion Details LastModified Time Tobacco Smoking Status Current Every Day Smoker she vapes Nathalia bar [facility] 09/15/2024 18:18:01 What Was The Date Of Your Most Recent Tobacco Screening? 06/05/2025 [email or web address] Information not available 06/05/2025 Sex: Unknown Functional Status Question Answer Note LastModified by Organizat ion Details LastModified Time Do you use any illicit or recreational drugs? No [email or web address] Information not available 01/22/2024 What is your level of alcohol consumption? None [email or web address] Information not available 09/15/2024 Mental Status None [...] Time Hib, unspecified formulation 2 [facility]/12/2023 16:22:07 MMR 2 completed [facility] 06/12/2023 16:22:07 MMR 5 completed [facility] 06/12/2023 16:22:07 DTaP-IPV 5 completed Destiney Capone [facility] 06/12/2023 16:22:08 DTaP-IPV 1 completed [facility] 06/12/2023 16:22:08 Tdap 5 completed [facility] 06/12/2023 16:22:08 varicella 2 completed Destiney Capone [facility] 06/12/2023 16:22:08 Hep B, unspecified formulation 2 completed [facility] 06/12/2023 16:22:08 Hep B, unspecified formulation 1 completed [facility] 06/12/2023 16:22:08 Hep B, unspecified formulation 1 completed Destiney bar, [facility] 06/12/2023 16:22:08 TAyM-Qdj-GGF 1 completed Destiney Estelita null, [facility] 06/12/2023 16:22:08 FFyB-Qhe-UXK 1 completed Destiney Estelita null, [facility] 06/12/2023 16:22:08 HPV, quadrivalent 2 completed Destiney Estelita null, [facility] 06/12/2023 16:22:08 Hep A, ped/adol, 2 dose 5 completed Destiney bar, [facility] 06/12/2023 16:22:08 Hep A, ped/adol, 2 dose 2 completed Destiney Capone null, [facility] 06/12/2023 16:22:08 meningococcal MCV4P 5 completed Destiney bar, [facility] 06/12/2023 16:22:08 DTaP 2 completed Destiney bar, [facility] 06/12/2023 16:22:08 Tdap 9 completed Destiney bar, [facility] 06/12/2023 16:22:08 Past Encounters Encounter ID Performer Location Encounter Start Date Encounter Closed Date Diagnosis/Indication Diagnosis SNOMED-CT Code Diagnosis ICD10 Code Diagnosis IMO Codes Diagnosis Note [id number] NICHO CISNEROS [facility] ([facility]) [address] [place] [address] 10/26/2022 14:04:01 10/26/2022 14:23:19 Toothache 91141339 K08.89 [id number] LYNN VIZCARRA NP [facility] ([facility]) [address] [place] [phone] 02/13/2023 11:38:03 02/13/2023 13:47:13 Upper respiratory infection 26243935 J06.9 Discussed to utilize Cetirizine and Flonase [...] concerns.P atient verbalized understand ing of plan [id number] Irwin Noyola MD [facility] ([facility]) [address] [place] [phone] 5 04/07/2023 17:28:22 04/07/2023 18:51:54 Bronchitis 58339874 J40 [id number] RICHARD TRUJILLO DISABILITY COUNSELOR [facility] ([facility]) [address] [place] [phone] 5 06/12/2023 15:53:00 06/21/2023 20:56:54 Amenorrhea 46056704 N91.2 Pain in pelvis 48766466 R10.2 [id number] NEHA STORY [facility] ([facility]) [address] [place] [id number] 07/04/2023 11:26:25 07/06/2023 13:19:33 Viral screening 644101877 Z11.52 Acute pharyngitis 391640 003 J02.9 Negative COVID and strep tests today. Will start benzonatat e PRN for cough. Can take tylenol and ibuprofen PRN for pain. If no improvemen t in 7-10 days, should return for further evaluation . Patient verbalizes understand ing. [id number] ROSALVA OLIVAREZ PA-C [facility] ([facility]) [address] [place] [id number] 5 08/14/2023 10:46:53 08/14/2023 15:05:06 Chronic pharyngitis 315147 J31.2 Seasonal a llergic rhinitis 262861736 J30.2 Migraine 76173938 G43.90 9 [id number] NICHO MORAN [facility] ([facility]) [address] [place] [phone] 5 01/22/2024 13:44:52 01/24/2024 18:45:44 Acute pustular skin eruption 5186554039 R21 Discussed use of ointment and clinda. [id number] ROSALVA OLIVAREZ PA-C [facility] ([facility]) [address] [place] [id number] 5 02/11/2024 10:37:29 02/11/2024 11:43:27 Maculopapular eruption 931560284 R21 rocasea vs allergyFla red with heat and sun. responds to steroids. [id number] NICHO MORAN [facility] ([facility]) [address] [place] [id number] 5 03/23/2024 09:21:20 03/23/2024 10:57:18 Low back pain 557586525 M54.50 Discussed to take 400mg ibuprofen twice a day for next 5 days with food.Use tizanidine as prescribed .Apply a heating pad for 10 minutes every 2 hours while awake. Perform slow stretches 2 times a day.F/u with PCP in 4-5 days if symptoms persist or worsen.Sta rt physical therapy. [id number] Irwin Noyola MD [facility] ([facility]) [address] [place] [phone] 5 05/12/2024 13:54:37 05/12/2024 14:40:34 Allergic rhinitis 87836430 J30.9 Patient does have some evidence of allergies and recommend Flonase Upper resp iratory infection 05149942 J06.9 Patient presented with symptoms of viral [...] in 7-10 days if symptoms not improving. [id number] ROSALVA OLIVAREZ PA-C [facility] ([facility]) [address] [place] [id number] 05/17/2024 10:19:06 05/18/2024 10:27:03 Atopic dermatitis 56007027 L20.9 Polymyalgia 22313268 M35 .3 Acute urticaria 81313034 9 L50.9 Hyperglycemia 53833526 R 73.9 [id number] Irwin Noyola MD [facility] ([facility]) [address] [place] [id number] 5 09/15/2024 18:03:29 09/22/2024 06:46:14 Upper respiratory infection 74429725 J06.9 Patient presented with symptoms of viral [...] 7-10 days if symptoms not improving. Cough 43019652 R05.9 flu neg [id number] ROSALVA OLIVAREZ PA-C [facility] ([facility]) [address] [place] [id number] 5 11/02/2024 14:31:45 11/02/2024 16:39:25 Pain in pelvis 62836215 R10.2 Asthma 664144994 J45.90 9 Migraine 32635850 G43.90 9 Morbid obesity 006618008 E66.01 Pt has tried and failed a 3 month at home weight loss program of counting calories and tracking food.I recommend starting a GLP1 wt lossI explained how GLP1 help to lose weight. We discussed possible SE of nausea, vomiting, bloating and constipati on. Showed how to use self injection pen. All questions were answered to satisfacti on [id number] ROSALVA OLIVAREZ PA-C [facility] ([facility]) [address] [place] [id number] 5 11/30/2024 14:02:06 12/01/2024 12:40:46 [id number] ROSALVA OLIVAREZ PA-C [facility] ([facility]) [address] [place] [id number] 5 01/06/2025 10:24:00 01/06/2025 11:11:22 Morbid obesity 066788125 E66.01 25# wt loss in 2 months. Doing great. will keep tritrating up her doseSome constipati on. recommende d adding colace or miralax. Cyst of left ovary [address]54[address] 56230 5348544 N83.202 100942 watching a solid 9 mm area on the left ovary. has repeat u/s in 8.25 [id number] ROSALVA OLIVAREZ PA-C [facility] ([facility]) [address] [place] [id number] 5 03/15/2025 14:29:15 03/17/2025 14:30:29 [id number] ROSALVA OLIVAREZ PA-C [facility] ([facility]) [address] [place] [id number] 5 03/15/2025 15:20:22 03/15/2025 16:42:39 Morbid obesity 537458605 E66.01 43# wt loss on the Zepbound since starting in November No se. she is doing great.no questions. Mass of ovary 541337183 N83.8 [id number] she had her f/u u/s today. will call her with results tomorrow [id number] ROSALVA OLIVAREZ PA-C [facility] ([facility]) [address] [place] [id number] 05/11/2025 13:31:47 05/11/2025 14:24:19 Acute bacterial sinusitis 06756050 J01.90 B96.89 62565 Morbid obesity 473366727 E66.01 43# wt loss on the Zepbound since starting in November No se. she is doing great.no questions. increase dose due to plateau. Polycystic ovary syndrome 784370246 E28.2 [id number] did not do well on metformin [id number] NICHO MORAN [facility] ([facility]) [address] [place] [address] 06/05/2025 17:19:20 06/05/2025 18:03:46 Acute folliculitis 128094816 L73.9 12369663 [id number] ROSALVA OLIVAREZ PA-C [facility] ([facility]) [address] [place] [address] 06/15/2025 13:44:09 06/15/2025 17:40:08 Steroid acne 224366895 L70.8 T38.0X5A 111906 she will call derm and get a f/u appt. Polycystic ovary syndrome 254329732 E28.2 [id number] did not do well on metformin she will come get her labs ordered soon. Health Concerns Section Related Observation LastModified by Organization Detai ls LastModified Time None Recorded Concern Status LastModified by Organization Details LastModified Time None Recorded Advance Directives Directive None Recorded Payers Insurance Date Sequence Insurance Name Policy Number Policy Sebastian Covered Member ID Sebastian Member ID Guarantor Name 07/06/2023 1 *SELF PAY* Vicki Byers 06/05/2025 [place] [facility]INSTITUTIONAL ) Kia Byers [id number] Kia Byers 12/05/2024 1 [facility] [place] [facility] Kia Sheriff [id number] Kia Byers 03/15/2025 1 [place] Kia Byers [id number] Kia Beyrs 12/05/2024 1 [employer] [place] - [place] [id number] Kia Sheriff [id number] Kia Byers 12/05/2024 1 [place] Kia Sheriff [id number] Kia Byers 06/14/2025 1 [facility] JULIANA Byers [id number] Kia Byers Notes Date Note Type Note Provider Name and Address Organization Details Recorded Time 03/15/2025 text/html ObesityReported by PatientHPIFor diagnosis summary, patient reportsage at start of weight gain 5. For lifestyle changes, patient reportsmotivated to continue lifestyle changes,motivated to make lifestyle changes,losing weight, andexercising more. For nutrition, patient reportslow-fat diet yes,low-carbohydrate diet yes,balanced low-calorie diet yes,high-protein diet yes,very low calorie diet yes, andintermittent fasting yes. For physical activity, patient [email or web address] minutes of moderate exercise per weekandweekly screen time ([employer]) : 42 hours. For medication education, patient reportsverbalizes understanding of potential medication side effects yes,verbalizes understanding of medication administration yes, andverbalizes understanding of role of diet as primary therapy yes. ROSALVA OLIVAREZ PA-C [address] [place] [address], [address], [facility], [facility] 03/15/2025 16:36:20 05/11/2025 text/html Upper Respirator y [...] I need labs done ROSALVA OLIVAREZ PA-C [address] [place], [address], [facility], LAc. 05/11/2025 14:21:17 06/05/2025 text/html ROS as noted in the HPI walk in patientpatient is here today for folictolitis on her face, neck and chest that is flared up NICHO MORAN [address] [place], [address], [facility], Marcelo. 06/05/2025 17:51:21 06/15/2025 text/html Rash/Skin LesionReported by PatientHPIFor location, patient reportsface,chest, andwhole body. For quality, patient reportsmacules,vesicle s, andblisters. For severity, patient reportsmoderate. For duration, patient reportshas noted for __and36 months. For timing, patient reportsgradualandconst ant. For context, patient reportsno new detergents or skin products,no one else with similar rash, andnot scratching. AcneReported by PatientHPIFor severity, patient reportsworsening,moder ate, andwith scarring. For location, patient reportsforehead,cheek, chin,neck, andchest. For quality, patient reportspainfulandburni ng. For duration, patient reports__ months. For timing, patient reportsabrupt onset,recurring, andnew break-outs occur variably. For context, patient reportsnormal menstrual cycle. For prior treatments, patient reportsnone. saw derm and they said its folliculitis they biopsied, they gave cream and 2 different washes that haven't worked, she has to have progesterone and annual labs in a week and she would like to have testing to see what is causing this, she says derm doesn't do any testing to find out root cause. prednisone is only thing that has helped ROSALVA OLIVAREZ PA-C [address] [place], [address], [facility] [place] 06/15/2025 17:40:07 OBGyn Episode No OBEpisode recorded.
--- OUTSIDE RECORDS SUMMARY | 2025-06-18 02:05 | XMS_ITS | Continuity of Care Document ---
Author Organization [facility] Peterson Almendarez, [facility] ([facility]) Address [address] [place] [address] Care Team Providers Care Museum Attendant Name Role Phone SHER ROSALVA Primary Care Provider Unavailabl e Assessment No assessment recorded. Plan of Treatment Reminders Order Date Submit Date Provider Last Modified By Organization Details Last Modified Time Details Appointments None recorded. Lab None recorded. Referral None recorded. Procedures None recorded. Surgeries None recorded. Imaging None recorded. Medication Orders clindamycin 1 % topical gel 2024 025 [facility] [place], [address] [place] [address], [address], 5 17:21:08 minocycline 100 mg capsule [address], [address], 5 17:21:08 Patient TargetsNo targets recorded. Patient InstructionsNo instructions recorded. Reason for Referral None Reported. Problems Name Problem SNOMED Code Status Onset Date Resolution Date Notes Provider Name and Address Organization Details Recorded Time Allergic rhinitis 70306311 Active 2023 [facility] 5 16:51:34 Morbid obesity 106834590 Active 2024 [facility] 08:47:25 Mass of ovary 102862616 Active 2024 [facility] 5 19:30:32 Cyst of left ovary 06170591116331 108 Active 2024 [facility] 5 19:30:24 Irregular periods 10159544 Active 2024 [facility] 5 08:06:21 Problem Notes None recorded. Procedures Surgical History Date Name Laterality Status Provider Name and Address Organization Details Recorded Time 4 tonsilectomy/ adenoids completed Shyanna Althea [facility] 03/23/2024 09:25:04 0 section completed ROSALVA OLIVAREZ PA-C [address] [place], [address], [facility] 08/14/2023 11:48:40 Imaging Results None recorded. Procedure Notes None recorded. Medical Equipment None Reported. Allergies Allergen ID Allergen Name Allergen Category Reaction Reaction Severity Criticality Documentation Date Start Date Code Code System Note Provider Name and Address Organization Details Recorded Time 61364 Product containin g penicilli n (product) medicatio n rash moderate high 05/11/20252024 96379 8001 SNOMED ROSALVA OLIVAREZ PA-C [address] [place], [address], [facility] 5 14:04:34 Medications Name Sig Start Date Stop [...] Organization Details Last Updated DateTime 149.86 cm 40.4 kg/m2 44005.4 7 g 97 % 97 % 80 /min 18 /min 98 [degF] 122/70 mm[Hg] PAVEL OMTA [facility] 13:50:20 Social History Question Answer Notes LastModified by Brighter Future Challengeizat ion Details LastModified Time Tobacco Smoking Status Current Every Day Smoker she vapes Nathalia bar [facility] 09/15/2024 18:18:01 What Was The Date Of Your Most Recent Tobacco Screening? 06/05/2025 [email or web address] Information not available 06/05/2025 Sex: Unknown Functional Status Question Answer Note LastModified by Organizat ion Details LastModified Time Do you use any illicit or recreational drugs? No [email or web address] Information not available 01/22/2024 What is your level of alcohol consumption? None [email or web address] Information not available 09/15/2024 Mental Status None [...] Hib, unspecified formulation 2 completed Destiney bar [facility] 06/12/2023 16:22:07 MMR 2 completed Destiney bar [facility] 06/12/2023 16:22:07 [facility] 5 [facility]2023 16:22:07 DTaP-IPV 5 [facility] 06/12/2023 16:22:08 DTaP-IPV 1 completed [facility] 06/12/2023 16:22:08 Tdap 5 [facility] 06/12/2023 16:22:08 varicella 2 [facility] 06/12/2023 16:22:08 Hep B, unspecified formulation 2 completed Destiney bar [facility] 06/12/2023 16:22:08 Hep B, unspecified formulation 1 [facility] 06/12/2023 16:22:08 Hep B, unspecified formulation 1 [facility] 06/12/2023 16:22:08 OXyB-Gzy-VPU 1 anay bar [facility] 06/12/2023 16:22:08 LMhF-Xoe-CDH 1 completed Destieny bar [facility], Mario.DougCLoida 06/12/2023 16:22:08 HPV, quadrivalent 2 completed Destiney bar [facility] 06/12/2023 16:22:08 Hep A, ped/adol, 2 dose 5 completed Destiney bar [facility] 06/12/2023 16:22:08 Hep A, ped/adol, 2 dose 2 completed Destiney bar [facility], DougLLoidaCLoida 06/12/2023 16:22:08 meningococcal MCV4P 5 completed Destiney bar [facility], DougLLoidaCLoida 06/12/2023 16:22:08 DTaP 2 completed Destiney bar [facility] 06/12/2023 16:22:08 Tdap 9 completed Destiney [facility], DougLLoidaCLoida 06/12/2023 16:22:08 Past Encounters Encounter ID Performer Location Encounter Start Date Encounter Closed Date Diagnosis/Indication Diagnosis SNOMED-CT Code Diagnosis ICD10 Code Diagnosis IMO Codes Diagnosis Note [id number] NICHO MORAN [facility] ([facility]) [address] [place] [phone] 06/05/2025 17:19:20 06/05/2025 18:03:46 Acute folliculitis 703965543 L73.9 [id number] ROSALVA OLIVAREZ PA-C [facility] ([facility] [address] [place] [phone] 06/15/2025 13:44:09 06/15/2025 17:40:08 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 Polycystic ovary syndrome 727791733 E28.2 [id number] did not do well on metformin she will come get her labs ordered soon. Health Concerns Section Related Observation LastModified by Organization Detai ls LastModified Time None Recorded Concern Status LastModified by Organization Details LastModified Time None Recorded Payers Encounter Date Sequence Insurance Name Policy Number Policy Sebastian Covered Member ID Sebastian Member ID Guarantor Name 06/15/[address] [facility] ([place]ICA[place]PLAC[place] - [place]MO) JULIANA Kia Byers [id number] Kia Byers Notes Date Note Type Note Provider Name and Address Organization Details Recorded Time 06/15/2025 text/html Rash/Skin LesionReported by PatientHPIFor location, patient reportsface,chest, andwhole body. For quality, patient reportsmacules,vesic les, andblisters. For severity, patient reportsmoderate. For duration, patient reportshas noted for __and36 months. For timing, patient reportsgradualandcon stant. For context, patient reportsno new detergents or skin products,no one else with similar rash, andnot scratching. AcneReported by PatientHPIFor severity, patient reportsworsening,mod erate, andwith scarring. For location, patient reportsforehead,arely k,chin,neck, andchest. For quality, patient reportspainfulandbur richie. For duration, patient reports__ months. For timing, [...] that has helped ROSALVA OLIVAREZ PA-C [address] [place], [address], [facility] 17:40:07 OBGyn Episode No OBEpisode recorded.
[2025-06-18 02:33] VITALS: BP 145/92; PULSE 85; RESP 18; TEMP 36.8; O2SAT 99; BMI 40.4
--- NOTE | 2025-06-18 03:58 | W.ED.SKABFB ---
HPI - Skin/Abscess/Foreign Bdy General: Chief complaint: Skin/Abscess/Foreign Body Stated complaint: Rash on face, feels hot Time Seen by Provider: 06/18/25 03:25 History of Present Illness: Patient is a 24-year-old female presenting with facial rash and burning sensation. She reports that the condition has been recurring since last year when dermatology performed a biopsy of her chest that showed folliculitis. The patient states her face 'gets hot' and 'flushes' intermittently, especially when trying to sleep or repositioning away from a fan. She describes the sensation as burning, which is her most bothersome symptom. Patient saw her PCP approximately three days ago and was prescribed clindamycin cream and oral antibiotics, but reports no improvement in symptoms. She denies fever but notes that her face feels hot during flares. The rash appears to have worsened since a previous visit 'a couple days ago.' Patient reports previous improvement with steroid treatment Related Data Previous Rx's ?Medication ?Instructions ?Recorded ibuprofen 800 mg tablet 800 mg PO TID PRN pain #20 tabs 03/28/25 methylprednisolone 4 mg tablets in See Rx Instructions PO .COMPLEX 06/18/25 a dose pack (Medrol (Ulises)) #21 ea Allergies Allergy/AdvReac Type Severity Reaction Status Date / Time Penicillins Allergy ALGY-Hives Verified 06/13/25 23:52 [facility] ED [facility]: Medical History (Updated 06/18/25 @ 03:43 by Ezequiel Moreland DO) No pertinent family history Surgical History No pertinent past surgical history Social History Smoking and tobacco/nicotine status: current every day tobacco/nicotine user Physical Exam HENMT: COMMON NORMALS: normocephalic, atraumatic and Normal external nose present HEAD & SCALP: normocephalic and atraumatic FACE & SINUS: face symmetric and erythema; no edema NOSE: Normal external nose present and Normal nares present Eye: COMMON NORMALS: Equal, round and reactive pupils present, EOMs intact bilaterally and conjunctivae normal CONJUNCTIVA: Yes conjunctivae normal PUPIL: Yes Equal, round and reactive pupils present Resp: COMMON NORMALS: normal respiratory effort and clear to auscultation bilaterally AUSCULTATION: clear to auscultation bilaterally Cardio: COMMON NORMALS: regular rate and regular rhythm RATE: regular rate RHYTHM: regular rhythm Skin: NARRATIVE SKIN EXAM: Follicular skin rash to the face with underlying cystic acne. Course Vital Signs: Vital signs: Vital Signs Temperature 98.2 F 06/18/25 02:33 Pulse Rate 85 06/18/25 02:33 Respiratory Rate 18 06/18/25 02:33 Blood Pressure 145/92 06/18/25 02:33 Pulse Oximetry 99 06/18/25 02:33 MDM - Skin/Abscess/Foreign Bdy Medicial Decision Making Follicular acne/overlying folliculitis. She has antibiotics (minocycline), clindamycin ointment. She will be given a tapering dose of steroid for acute flare. She is encouraged to follow-up with dermatology. No radiology studies performed this visit Discharge Plan Discharge Patient Disposition: Home Clinical Impression: Follicular acne Condition: Stable Prescriptions: New methylprednisolone [Medrol (Ulises)] 4 mg tablets,dose pack See Rx Instructions .ROUTE .COMPLEX Qty: 21 0RF Rx Instructions: orally per package directions No Action ibuprofen 800 mg tablet 800 mg PO TID PRN (Reason: pain) Qty: 20 0RF Discharge Orders: Discharge ED (Routine); Ordered 06/18/25 Ordered By: Ezequiel Moreland Referrals: Georgia Norman PA [Primary Care Provider, Physicians Insurance Claims Analyst] - 1-3 days Patient Instructions: Folliculitis (ED), Opioid Safety, Pain Management, Patient Portal & [place] Instructions Activity Restrictions/Additional Instructions: Continue your antibiotics and ointment. Add steroid as above. Call your doctor Thursday for follow-up appointment. Print Language: Kinyarwanda Coding Level of Care Code ED Air Purifier Servicer for Rolly Calixto
== END 2025-06-18 04:06 | disposition home or self-care (01) ==
PROVIDERS: Emergency Provider Emergency Medicine; PCP Physician Assistant
DX: L70.8 Other acne (principal); Z72.0 Tobacco use
CPT/HCPCS: 99283; J8540